=== PATIENT | female | born 2000 | race Caucasian/White ===

== ENCOUNTER 2021-04-17 08:08 | Outpatient (REF) | payer OTHER, SELFPAY ==
--- NOTE | ~2021-04-17 | XR_ITS ---
EXAMINATION: XR CHEST 2 VIEWS CLINICAL INFORMATION: Morbid obesity. COMPARISON: None. TECHNIQUE: Frontal and lateral views of the chest were obtained. FINDINGS: The heart, great vessels, pulmonary vasculature and mediastinum are normal. The lungs show no focal infiltrate, effusion or pneumothorax. There is no acute osseous abnormality. XR/XR chest 2V IMPRESSION: No active cardiopulmonary disease.
--- NOTE | 2021-04-17 10:03 | ECG_ITS ---
Test Reason : MORBID OBESITY Blood Pressure : / mmHG Vent. Rate : 076 BPM Atrial Rate : 076 BPM P-R Int : 136 ms QRS Dur : 090 ms QT Int : 402 ms P-R-T Axes : 008 033 001 degrees QTc Int : 452 ms Normal sinus rhythm Normal ECG No previous ECGs available Referred By: Chantel Feldman Electronically Signed By:Michael Morris
[2021-04-17 10:34] LABS: MANUAL DIFF FLAG NO
[2021-04-17 10:40] LABS: Basophils Percent Auto 0.5 % (0-2); Eosinophils Absolute Auto 0.1 X10*3/uL (0.0-0.4); Eosinophils Percent Auto 0.8 % (0-4); Hematocrit 41.2 % (37-47); Hemoglobin 12.3 g/dl (12.0-16.0); Imm Gran Abs Auto 0.04 X10*3/uL (0.00-0.03); Imm Gran Pct Auto 0.5 % (0.0-0.4); Lymphocytes Absolute Auto 2.2 X10*3/uL (1.2-4.9); Mean Corpuscular HGB Conc 29.9 g/dl (31.0-35.0); Mean Corpuscular Volume 83.7 fL (80-98); Mean Platelet Volume 11.3 fL (9.4-12.3); Monocytes Absolute Auto 0.6 X10*3/uL (0.1-1.2); Neutrophils Percent Auto 63.2 % (45-73); Platelet Count 297 X10*3/uL (160-400); Red Blood Count 4.92 X10*6/uL (4.20-5.50); Red Cell Distribution Width 13.7 % (11.0-16.0); White Blood Count 7.9 X10*3/uL (4.8-10.8)
[2021-04-17 10:57] LABS: Estimated Average Glucose 105 mg/dL; Hemoglobin A1c % 5.3 %
[2021-04-17 11:13] LABS: Alanine Aminotransferase 21 U/L (0-31); Albumin Level 4.4 g/dL (3.5-5.0); Alkaline Phosphatase 118 U/L (39-117); Anion Gap 12 (12-20); Aspartate Amino Transferase 19 U/L (5-31); Bilirubin Total 0.3 mg/dL (0.0-1.0); Blood Urea Nitrogen 6 mg/dL (9-16); C Reactive Protein 3.03 mg/dL (< or = 0.50); Calcium 9.5 mg/dL (8.4-10.2); Carbon Dioxide 26 mmol/L (22-29); Chloride 106 mmol/L (96-108); Cholesterol 151 mg/dL; Estimated Glomerular Filt Rate > 60; Glucose Random 94 mg/dL (60-115); HDL Cholesterol 41 mg/dL; Iron 35 mcg/dL (30-160); LDL Cholesterol Calculated 79 mg/dl; Potassium 4.8 mmol/L (3.3-5.1); Sodium 139 mmol/L (135-145); Total Protein 7.9 g/dL (6.5-8.0); Triglycerides 155 mg/dL
[2021-04-17 11:32] LABS: Percent Iron Saturation 9 % (15-50); Total Iron Binding Capacity 374 mcg/dL (228-428); Unsaturated Iron Binding 339 ug/dL
[2021-04-17 11:33] LABS: Ferritin 16 ng/mL (10-122); TSH reflex Free T4 1.97 uIU/mL (0.32-4.0); Vitamin D 25-OH Total 9.5 ng/mL (>30)
[2021-04-17 11:48] LABS: Folate 11.3 ng/mL (> or = 4.0); Vitamin B12 383 pg/mL (200-900)
[2021-04-18 13:15] LABS: H Pylori Breath Test NOT DETECTED (NOT DETECTED)
[2021-04-19 01:41] LABS: Insulin Level Total 48.5 uIU/mL
[2021-04-20 13:36] LABS: Calcium (PTHI) 9.6 mg/dL (8.6-10.2); PTHI 84 pg/mL (14-64)
[2021-04-21 00:17] LABS: Zinc 86 mcg/dL (60-130)
[2021-04-21 20:32] LABS: Vitamin A 34 mcg/dL (38-98)
[2021-04-22 11:17] LABS: Vitamin B1 <6 nmol/L (8-30)
== END 2021-04-17 08:09 | disposition home or self-care (01) ==
LOC: HO.XRAY 08:08
PROVIDERS: Visit Provider Physician Assistant
DX: E66.01 Morbid (severe) obesity due to excess calories (principal)
CPT/HCPCS: 36415; 71046; 80053; 80061; 82306; 82607; 82728; 82746; 83013; 83036; 83525; 83540; 83970; 84425; 84443; 84590; 84630; 85025; 86140; 93005; 99202

== ENCOUNTER → 2021-05-08 09:04 | Outpatient (BNVA) | payer OTHER, SELFPAY | PROVIDERS: Visit Provider Dietitian, Registered | DX: E66.01 Morbid (severe) obesity due to excess calories (principal); Z68.42 Body mass index [BMI] 45.0-49.9, adult | CPT/HCPCS: 97802 ==

== ENCOUNTER 2021-05-15 09:07 | Outpatient (REF) | payer OTHER, SELFPAY ==
--- NOTE | ~2021-05-15 | FL_ITS ---
EXAMINATION: XR GI SERIES CLINICAL INFORMATION: Obesity COMPARISON: None TECHNIQUE: Upper GI was performed using thin and thick barium and effervescent granules. FINDINGS: Esophageal motility is normal. There is mild gastroesophageal reflux. No esophageal hernia is seen. The stomach and duodenum are normal-appearing. No focal fold thickening, ulcer, mass or stricture is seen. FLUOROSCOPY TIME: 0.9 minutes DOSE AREA PRODUCT: 11 rossi per centimeter squared. 18 saved fluoroscopic images. FL/FL upper GI series IMPRESSION: Mild gastroesophageal reflux otherwise unremarkable exam.
--- NOTE | ~2021-05-15 | US_ITS ---
EXAMINATION: US COMPLETE ABDOMEN WITH LIVER ELASTOGRAPHY CLINICAL INFORMATION: Obesity COMPARISON: None. TECHNIQUE: Real-time imaging of the abdominal viscera. Noninvasive ultrasound liver fibrosis assessment is performed using Kerwin ElastPQ point quantification shear wave elastography (pSWE) with a C5-2 MHz transducer. Multiple elastography samples are obtained. FINDINGS: PANCREAS: Not visualized due to overlying bowel gas. ABDOMINAL AORTA: The proximal, middle, and distal aortic segments are normal in caliber. INFERIOR VENA CAVA: Visualized portions are normal. LIVER: Liver echotexture is increased The liver demonstrates normal size and contour. No focal lesion or intrahepatic biliary duct dilatation. The right lobe measures 13 cm in length. The left lobe measures 8 cm in length. Portal flow is normal/hepatopedal Shear wave liver elastography median stiffness is 1.35 m/s (reference: normal median stiffness is 1.3 m/s or less). IQR/median stiffness to assess sampling precision is 0.17 (reference: good quality data set is IQR/median stiffness of 0.15 or less). GALLBLADDER: Normal. The gallbladder is physiologically distended without evidence of stones, sludge, polyps, wall thickening or pericholecystic fluid. COMMON BILE DUCT: Normal in caliber measuring 0.3 cm in diameter. RIGHT KIDNEY: Normal. No hydronephrosis. No renal calculi or focal parenchymal lesions. The kidney measures 10 cm in maximum dimension. LEFT KIDNEY: Normal. No hydronephrosis. No renal calculi or focal parenchymal lesions. The kidney measures 12 cm in maximum dimension. SPLEEN: Normal. The spleen measures 11 cm in maximum dimension. FREE FLUID: None. US/US abdomen comp w elastography IMPRESSION: 1. Impression: Echogenic liver probably representing fatty infiltration. Nonvisualization of the pancreas. 2. Liver elastography: Adequate liver sampling. Normal liver stiffness. REFERENCE: Society of Radiologists in Ultrasound Liver Stiffness Thresholds (2020): LIVER STIFFNESS THRESHOLDS: *Liver Stiffness equal or less than 1.3 m/s: High probability of being normal. *Liver Stiffness less than 1.7 m/s: In the absence of other known clinical signs, rules out compensated advanced chronic liver disease. *Liver Stiffness 1.7-2.1 m/s: Suggestive of compensated advanced chronic liver disease but need further test for confirmation. *Liver Stiffness over 2.1 m/s: Rules in compensated advanced chronic liver disease. *Liver Stiffness over 2.4 m/s: Suggestive of clinically significant portal hypertension. QUALITY OF DATA SET: *IQR/Median value equal or less than 0.15 implies a quality data set. *IQR/Median value over 0.15 implies a poor quality data set. SIGNIFICANT CHANGE FROM PRIOR EXAM: Significant change if liver stiffness measurement is 10% or greater from prior exam. OTHER CONSIDERATIONS: The stage of liver fibrosis may be overestimated in the setting of acute hepatitis, liver inflammation, elevated liver function tests, hepatic vascular congestion, obstructive cholestasis, non-fasting state, and infiltrative diseases such as amyloidosis and lymphoma. In some patients with NAFLD, the liver stiffness thresholds for compensated advanced chronic liver disease may be lower. In causes other than viral hepatitis and NAFLD, liver stiffness thresholds are not well established.
== END 2021-05-15 09:08 | disposition home or self-care (01) ==
LOC: HO.US 09:07
PROVIDERS: Visit Provider Physician Assistant
DX: Z01.818 Encounter for other preprocedural examination (principal); E66.01 Morbid (severe) obesity due to excess calories; K21.9 Gastro-esophageal reflux disease without esophagitis
CPT/HCPCS: 74240; 76705; 76981

== ENCOUNTER → 2021-05-30 08:07 | Outpatient (BNVA) | payer OTHER, SELFPAY | PROVIDERS: Visit Provider Dietitian, Registered | DX: E66.01 Morbid (severe) obesity due to excess calories (principal); Z68.42 Body mass index [BMI] 45.0-49.9, adult | CPT/HCPCS: 97803 ==

== ENCOUNTER → 2021-07-11 08:03 | Outpatient (BNVA) | payer OTHER, SELFPAY | PROVIDERS: Visit Provider Surgery ==

== ENCOUNTER 2023-05-08 09:42 | Outpatient (AMB) | payer OTHER, SELFPAY ==
--- NOTE | 2023-05-08 09:51 | MHC.OFFWIV ---
Intake Vital Signs 05/08/23 11:09 Height 5 ft Weight 117.707 kg BMI 50.7 BP 118/80 Blood Pressure Location Lt brachial Position Sitting Pulse 76 Pulse Source Pulse Oximeter Temp 97.2 F Temp Source Temporal Artery Scan Pulse Oximetry (%) 99 Oxygen Delivery Method Room Air Intake Visit Reasons: EP ?Yeast infection/Nausea/Hotflashes/Dizziness Intake Note: 9:50am-Pt triaged in the lobby, she developed hot flash and dizziness when she arrived at work about 9:20am today. Her boss advised her to leave and be evaluated. She drove to [place]. Skin is warm and dry, she denies blurred vision, weakness, chest pain. She is able to speak in complete sentences without dyspnea. O2 sat is 98%, pulse is 82. She is not currently nauseous but was earlier. Advised to wait for appt in the lobby (approx 2 hour wait) and to report any changes to the front office staff. She agrees with this plan. Yaron BROWN Patient Tobacco Use Status: Never used Tobacco HPI HPI Comments History of Present Illness Details 1141 23-year-old female history of URI, GERD hyperinsulinemia, adjustment disorder, morbid obesity presents to the clinic for evaluation of vaginal discharge the past few weeks, she states initially it looked like cottage cheese and now it is like yellow and green, she tells me she is unsure if she has any STDs at this time, currently sexually active. Does not think she is however. Patient also states she had an episode of dizziness this morning, worse with positional changes, now has resolved. She states she is feeling fine. She just wants evaluation for her vaginal discharge. She does report she had a miscarriage in January. She is trying to get in within [facility]BG[facility] however appointments are not in till a few weeks from now. Denies fevers, chills, headache, vision changes, dizziness at this time, chest pain, shortness of breath, nausea, vomiting, abdominal pain. Physical exam benign Will rule out STDs versus versus UTI versus cystitis. Dizziness likely BPPV, vertigo, unlikely stroke, posterior stroke, intracranial hemorrhage. NIH stroke scale is 0. No signs of acute abdomen. Unlikely ectopic or torsion Patient agrees to prophylactic treatment for gonorrhea, chlamydia and trichomonas. 500mg IM ceftriaxone has been given here and scripts for doxycycline 100 mg po BID X 7 days and metronidazole 500 mg po BID X 7 days have been given to the patient. Educated on safe sex practices, full pannel STD testing and speaking to? partners on possible STD. Educated patient on diagnosis and treatment plan, answered all question, patient verbalizes understanding. At this time patient will be discharged home, advised to return with new or worsening symptoms. Educated on worrisome signs and symptoms and when to return. At this time I feel comfortable discharge home. [facility] Medical History GERD (gastroesophageal reflux disease) Hyperinsulinemia Knee pain No known health problems Surgical History No history of previous surgery Family History Mother Non Hodgkin's lymphoma Father Arthritis Sister Celiac disease Sister No problems noted. Brother Alopecia Sister No problems noted. Social History Alcohol intake: current Alcohol intake frequency: holidays/special occasions only Patient Tobacco Use Status: Never used Tobacco Review of Systems Const Details: Constitutional : No Weight loss, No Fever, No Chills, No Fatigue, No Malaise ENT/Mouth : No sore throat, No Rhinorrhea Eyes: No Eye Pain, No Swelling, No Redness Cardiovascular : No Chest Pain, No SOB, No Dyspnea on Exertion, No Orthopnea, No Edema, No Palpitations Respiratory : No Cough, No Sputum, No Wheezing Gastrointestinal : No Nausea, No Vomiting, No Diarrhea, No Constipation, No abdominal Pain, No Hematochezia, No Melena Genitourinary : No Dysuria, No Urinary Frequency, No Hematuria, + vaginal dc Musculoskeletal : No joint pain, No Myalgias, No Joint Swelling Skin : No Skin Lesions, No rash Neuro : No Weakness, No Numbness, No Dizziness, No Headache Psych : No Anxiety/Panic, No Depression All other systems reviewed and are negative All systems reviewed & are unremarkable except as noted in HPI and below Physical Exam Vital Signs: Last Vital Signs Temp 97.2 F 05/08/23 11:09 Pulse 76 05/08/23 11:09 BP 118/80 05/08/23 11:09 Pulse Ox 99 05/08/23 11:09 Oxygen Delivery Method Room Air 05/08/23 11:09 BMI result Body Mass Index 50.7 vss Appearance: Alert.? Oriented X3.? No acute distress.? Head: Normocephalic, atraumatic, no step-offs or deformities Eyes: Pupils equal, round and reactive to light.? CVS: Normal heart rate and rhythm.? Pulses normal.? Respiratory: No respiratory distress.? Breath sounds normal.? Abdomen: Soft and nontender.? Skin: Skin warm and dry.? Normal skin color.? Normal skin turgor.? Extremities: No lower extremity edema.? No calf ttp. 5/5 strength to bilateral upper and lower extremities Back: No midline tenderness, no C-spine tenderness, full range of motion, no CVA tenderness bilaterally Neuro: Oriented X 3.? No motor deficit.? No sensory deficit. CN 2-12 intact Assessment & Plan Assessment & Plan (1) Vaginal discharge: Code(s): N89.8 - Other specified noninflammatory disorders of vagina Plan Take your medications as prescribed. If you were prescribed antibiotics today, it is important that you take your medication to their entirety, do not skip any doses, do not finish them early. Follow-up with your primary care provider this week. Return to the emergency department with new or worsening symptoms. Such as fevers, chills, chest pain, shortness of breath, nausea, vomiting, dizziness, headache, vision changes, lethargy In case of emergency call 911 You were treated here today with ceftriaxone, a medication that treats gonorrhea. I have sent to your pharmacy Metronidazole that covers trichomonas, and Doxycycline which covers for chlamydia. Please be reevaluated by a healthcare provider after completing your antibiotics. Do not stop them early, do not skip any doses. Until you are reevaluated by a health care provider please practice safe sex as disucussed. Please also have a conversation with your sexual partners.? I also advise you to obtain full panel STD testing to test for other STDs including HIV, Hepatitis B & C and syphilis with your PCP or a local clinic. Orders: Orders AMB Ceftriaxone Injection Today N89.8 - Other specified noninflammatory disorders of vagina Medications: New ceftriaxone 500 mg IM ONCE 1 ea 0RF N89.8 - Other specified noninflammatory disorders of vagina doxycycline hyclate 100 mg PO BID 7 days 14 caps 0RF metronidazole 500 mg PO BID 7 days 14 tabs 0RF fluconazole 150 mg PO Q3D 2 doses 2 tabs 0RF Coding Level of Care Code Est Pt Level 3 (47972) Diagnoses Vaginal discharge N89.8
[2023-05-08 11:09] VITALS: BP 118/80; PULSE 76; TEMP 36.2; O2SAT 99; BMI 50.7
[2023-05-08 16:33] LABS: CT PCR NOT DETECTED (Not Detect.); NG PCR NOT DETECTED (Not Detect.)
== END 2023-05-08 13:47 | disposition home or self-care (01) ==
PROVIDERS: PCP Pediatrics; Visit Provider Physician Assistant
DX: N89.8 Other specified noninflammatory disorders of vagina (principal); Z32.02 Encounter for pregnancy test, result negative
CPT/HCPCS: 81003; 81025; 96372; 99213; J0696

== ENCOUNTER 2024-07-31 05:34 | Emergency (ER) | payer OTHER, SELFPAY ==
[2024-07-31 05:36] VITALS: BP 124/74; PULSE 126; RESP 20; TEMP 38.2; O2SAT 96; BMI 49.2
[2024-07-31 05:58] LABS: IDNOW Serial# 6674DD1D; Strep A Nucleic Acid Negative (Negative)
[2024-07-31 06:25] LABS: Influenza A PCR NEGATIVE (Negative); Influenza B PCR NEGATIVE (Negative); Resp Syncy Virus RNA Qual PCR NEGATIVE (Negative); SARS COV2 PCR INHOUSE NEGATIVE (Negative)
[2024-07-31 06:30] VITALS: BP 122/69; PULSE 114; RESP 18; TEMP 38; O2SAT 98
--- NOTE | 2024-07-31 06:35 | PC.NURSE ---
pt states trying to take liquid medication at home but has spit it up because it it hard to swallow. febrile in ED 100.4
[2024-07-31] MEDS: Acetaminophen Oral Liquid 650 MG/20.3 ML SOLUTION PO (06:40)
--- NOTE | 2024-07-31 07:21 | ED.FEVER ---
HPI - Fever General Chief Complaint: Fever Stated Complaint: Fever, Soar Throat Time Seen by Provider: 07/31/24 06:44 Source: patient Mode of arrival: ambulatory Limitations: no limitations History of Present Illness ED Provider: FREDDIE Anton HPI Narrative: 24-year-old female history of genital herpes, obesity, adjustment disorder, hyperinsulinemia, GERD presents with severe sore throat ongoing for the past 3 days, she reports since night she has had a fever of 102 and severe sore throat. She reports her soak her throat is causing difficulty with swallowing solids and liquids. This is the worse pain she has ever had in her throat. She reports changes in voice. She has not been eating or drinking much due to lack of appetite and pain in her throat. She denies sick contacts. She denies nausea, vomiting, diarrhea, abdominal pain, headache, vision changes, dizziness, cough, chest pain, shortness of breath. No hx of mono. No recent dental work Related Data Previous Rx's ?Medication ?Instructions ?Recorded doxycycline hyclate 100 mg capsule 100 mg PO BID 7 days #14 caps 05/08/23 fluconazole 150 mg tablet 150 mg PO Q3D 2 doses #2 tabs 05/08/23 metronidazole 500 mg tablet 500 mg PO BID 7 days #14 tabs 05/08/23 Magic Mouthwash 5 ml PO TID #240 mL 07/31/24 Diphen/Lido/Antacid 1:1:1 240 mL suspension prednisone 20 mg tablet 40 mg (2 x 20 mg) PO DAILY 5 days 07/31/24 #10 tabs Allergies Allergy/AdvReac Type Severity Reaction Status Date / Time No Known Allergies Allergy Verified 07/31/24 05:38 Review of Systems Review of Systems: Yes all other systems are reviewed and are negative PMFSH Past Medical History Attestation statement: The following information was validated with the patient. Source: old records reviewed and nursing notes reviewed Medical History Knee pain GERD (gastroesophageal reflux disease) Hyperinsulinemia No known health problems Surgical History No history of previous surgery Family History Family History Mother Non Hodgkin's lymphoma Father Arthritis Sister Celiac disease Sister No problems noted. Brother Alopecia Sister No problems noted. Social History Social History Alcohol intake: current Alcohol intake frequency: holidays/special occasions only Patient Tobacco Use Status: Never used Tobacco Smoked in Last 30 Days: No Use of substances other than those prescribed or required for medical reasons: Yes Substance Use Type: Marijuana Advance Directives: No Advance Directives Information Provided: Yes Do you have a plan to hurt others: No Plan Physical Exam Vital Signs: Vital Signs: Last Vital Signs Temp 99.3 F 07/31/24 08:12 Pulse 104 H 07/31/24 08:12 Resp 18 07/31/24 08:12 BP 126/69 07/31/24 08:12 Pulse Ox 97 07/31/24 08:12 O2 Del Method Room Air 07/31/24 08:12 BMI result Body Mass Index 49.2 Patient is tachycardic and febrile likely secondary to viral illness. Appearance: Alert.? Oriented X3.? No acute distress.? Head: Normocephalic, atraumatic, no step-offs or deformities Eyes: Pupils equal, round and reactive to light.? ENT: Pharynx with bilateral tonsillar hypertrophy, erythema. No tonsillar exudates. Uvula is midline. Normal hard and soft palate. Patient does have a muffled voice. Neck: Normal inspection.? Neck supple.? CVS: Normal heart rate and rhythm.? Pulses normal.? Respiratory: No respiratory distress.? Breath sounds normal.? Abdomen: Soft and nontender.? Skin: Skin warm and dry.? Normal skin color.? Normal skin turgor.? Extremities: No lower extremity edema.? No calf ttp. 5/5 strength to bilateral upper and lower extremities Neuro: Oriented X 3.? No motor deficit.? No sensory deficit. CN 2-12 intact Course Reevaluation(s) Reevaluation #1: Patient with leukocytosis 19.7, no left shift. This is likely secondary to viral illness/mononucleosis which is the most likely diagnosis at this time. Chemistry with no acute findings needing intervention CRP markedly elevated 18.57 likely secondary to acute illness/mono. Patient negative for flu, COVID, RSV. Positive for mononucleosis as expected. Patient doing much better after oral Decadron and Tylenol. Tolerating p.o. fluids and solids. Patient to be discharged with prednisone, magic mouthwash. I did tell her there is a low threshold for her on when to return if she experiences difficulty swallowing, worsening sore throat, changes in voice trouble controlling secretions she should return immediately. She verbalizes understanding of this and feels comfortable going home. No indication for admission at this time. No signs of threat to airway. Patient doing much better. Educated patient on diagnosis and treatment plan, answered all question, patient verbalizes understanding. At this time patient will be discharged home, advised to return with new or worsening symptoms. Educated on worrisome signs and symptoms and when to return. At this time I feel comfortable discharge home. Time: 08:39 Medications Administered Discontinued Medications Generic Name Dose Route Start Last Admin Trade Name Reynaldo PRN Reason Stop Dose Admin Acetaminophen 650 mg 07/31/24 06:37 07/31/24 06:40 Acetaminophen Oral Liquid 650 Mg/20.3 Ml Solution PO 07/31/24 06:38 650 mg ONCE ONE Administration Dexamethasone Sodium Phosphate 10 mg 07/31/24 07:21 07/31/24 08:10 Dexamethasone Sod Phosphate 10 Mg/Ml Vial IVPUSH 07/31/24 07:22 10 mg ONCE ONE Administration Medical Decision Making Medical Decision Making [facility] Narrative: 24-year-old female presents with sore throat, fatigue, malaise, myalgias and fever ongoing for the past few days. Physical exam significant for Pharynx with bilateral tonsillar hypertrophy, erythema. No tonsillar exudates. Uvula is midline. Normal hard and soft palate. Patient does have a muffled voice. History and physical exam concerning for strep pharyngitis versus mononucleosis. Unlikely peritonsillar abscess, retropharyngeal abscess, epiglottitis, Yakov's Plan- labs, viral testing Differential Diagnosis Differential Diagnoses: The differential diagnosis associated with the presentation includes (History and physical exam concerning for strep pharyngitis versus mononucleosis. Unlikely peritonsillar abscess, retropharyngeal abscess, epiglottitis, Yakov's) Admission/Observation Consideration of admission/observation: Escalation of care including admission/observation considered Lab Data [facility] Lab Attestation statement: I reviewed the patient's lab results. 07/31/24 07:53 07/31/24 07:53 Labs: Lab Results 07/31/24 07/31/24 07/31/24 Range/Units 05:43 07:06 07:53 WBC 19.7 H (4.8-10.8) X10*3/uL RBC 4.40 (4.20-5.50) X10*6/uL Hgb 10.9 L (12.0-16.0) g/dl Hct 35.4 L (37.0-47.0) % MCV 80.5 (80.0-98.0) fL MCH 24.8 L (27.0-33.0) pg MCHC 30.8 L (31.0-35.0) g/dl RDW 15.7 (11.0-16.0) % Plt Count 227 (160-400) X10*3/uL MPV 10.9 (9.4-12.3) fL Sodium 137 (135-145) mmol/L Potassium 3.4 (3.3-5.1) mmol/L Chloride 107 (96-108) mmol/L Carbon Dioxide 22 (22-29) mmol/L Anion Gap 11 L (12-20) BUN 4 L (9-16) mg/dL Creatinine 0.73 (0.5-1.4) mg/dL Estim Creat Clear Calc 136.9 Estimated GFR > 60 Random Glucose 120 H (60-115) mg/dL Calcium 9.2 (8.4-10.2) mg/dL Total Bilirubin 1.2 H (0.0-1.0) mg/dL AST 16 (5-31) U/L ALT 11 (0-31) U/L Alkaline Phosphatase 94 (39-117) U/L C-Reactive Protein 18.57 H (< or = 0.50) mg/dL Total Protein 7.7 (6.5-8.0) g/dL Albumin 4.1 (3.5-5.0) g/dL Monoscreen Positive A (Negative) Influenza Type A (PCR) NEGATIVE (Negative) Influenza Type B (PCR) NEGATIVE (Negative) RSV RNA Qual (PCR) NEGATIVE (Negative) SARS-CoV-2 RNA (RT-PCR) NEGATIVE (Negative) S. pyogenes GrpA SHAD Negative (Negative) External Record Review External record reviewed: Inpatient record, Office record, Outpatient record, Prior outpatient labs, Prior outpatient radiology, Primary care record and Outside ED record Prescription Management I considered prescription management with: Other (Steroids) Chronic Conditions Patient?s care impacted by: Other (GERD, obesity, adjustment disorder, genital herpes) Discharge Plan Discharge Clinical Impression: Mononucleosis, Pharyngitis Patient Disposition: Home, Self-Care Instructions: Mononucleosis (ED), Pharyngitis (ED) Additional Instructions: Take your medications as prescribed. If you were prescribed antibiotics today, it is important that you take your medication to their entirety, do not skip any doses, do not finish them early. Follow-up with your primary care provider this week. Return to the emergency department with new or worsening symptoms. Such as fevers, chills, chest pain, shortness of breath, nausea, vomiting, dizziness, headache, vision changes, lethargy In case of emergency call 911 Please keep hydrated. Return with any new or worsening symptoms such as changes in voice worsening pain in your throat, inability to swallow liquids or solids. Prescriptions: New prednisone 20 mg tablet 40 mg PO DAILY 5 Days Qty: 10 0RF Magic Mouthwash Diphen/Lido/Antacid 1:1:1 240 mL suspension 5 ml PO TID Qty: 240 0RF Rx Instructions: Lidocaine Viscous 2 % 80mL; diphenhydramine 12.5 mg/5 mL 80mL; aluminum-mag hydrox-simeth [id number] 80mL Swish and spit, do not swallow No Action doxycycline hyclate 100 mg capsule 100 mg PO BID 7 Days Qty: 14 0RF metronidazole 500 mg tablet 500 mg PO BID 7 Days Qty: 14 0RF fluconazole 150 mg tablet 150 mg PO Q3D 0 Days Qty: 2 0RF Referrals: Nava Wong [Primary Care Provider] - 2 days Stand Alone Forms: Work/School Release Print Language: Albanian
[2024-07-31 08:01] LABS: Basophils Absolute Auto 0.1 X10*3/uL (0.0-0.2); Basophils Percent Auto 0.3 % (0-2); Hematocrit 35.4 % (37.0-47.0); Hemoglobin 10.9 g/dl (12.0-16.0); Imm Gran Abs Auto 0.18 X10*3/uL (0.00-0.03); Imm Gran Pct Auto 0.9 % (0.0-0.4); Lymphocytes Absolute Auto 1.7 X10*3/uL (1.2-4.9); Lymphocytes Percent Auto 8.4 % (20-40); MANUAL DIFF FLAG SCAN; Mean Corpuscular HGB Conc 30.8 g/dl (31.0-35.0); Mean Corpuscular Hemoglobin 24.8 pg (27.0-33.0); Mean Corpuscular Volume 80.5 fL (80.0-98.0); Mean Platelet Volume 10.9 fL (9.4-12.3); Monocytes Absolute Auto 1.8 X10*3/uL (0.1-1.2); Monocytes Percent Auto 9.2 % (2-11); Neutrophils Percent Auto 81.2 % (45-73); Platelet Count 227 X10*3/uL (160-400); Red Cell Distribution Width 15.7 % (11.0-16.0); SCAN SMEAR FLAG 1; White Blood Count 19.7 X10*3/uL (4.8-10.8)
[2024-07-31 08:07] LABS: Monotest Positive (Negative)
[2024-07-31] MEDS: dexAMETHasone sod phosphate 10 MG/ML VIAL IVPUSH (08:10)
[2024-07-31 08:12] VITALS: BP 126/69; PULSE 104; RESP 18; TEMP 37.4; O2SAT 97
--- NOTE | 2024-07-31 08:15 | PC.NURSE ---
pt is alert and oriented, skin appropriate for ethnicity, respirations even and unlabored, pt reports not feeling well since , sore throat and fevers-throat is extremely swollen and red
[2024-07-31 08:18] LABS: Alanine Aminotransferase 11 U/L (0-31); Albumin Level 4.1 g/dL (3.5-5.0); Alkaline Phosphatase 94 U/L (39-117); Anion Gap 11 (12-20); Aspartate Amino Transferase 16 U/L (5-31); Bilirubin Total 1.2 mg/dL (0.0-1.0); Blood Urea Nitrogen 4 mg/dL (9-16); C Reactive Protein 18.57 mg/dL (< or = 0.50); Calcium 9.2 mg/dL (8.4-10.2); Carbon Dioxide 22 mmol/L (22-29); Chloride 107 mmol/L (96-108); Creatinine Clr Calc Pharmacy 136.9; Estimated Glomerular Filt Rate > 60; Glucose Random 120 mg/dL (60-115); Potassium 3.4 mmol/L (3.3-5.1); Sodium 137 mmol/L (135-145); Total Protein 7.7 g/dL (6.5-8.0)
[2024-07-31 08:39] LABS: SLIDE REVIEW VERIFIED
[2024-07-31 08:42] LABS: Erythrocyte Sedimentation Rate 38 MM/HR (0-20)
[2024-07-31 09:09] VITALS: BP 126/69; PULSE 104; RESP 18; TEMP 37.4; O2SAT 97
--- OUTSIDE RECORDS SUMMARY | 2024-08-06 12:16 | XMS_ITS | Continuity of Care Document ---
Author Organization [facility] Address [address] [place] [address]- Care Team Providers Care Veneer Stock Layer Name Role Phone Courtney COREAS, Joe Primary Care Physician Encounter [facility] Date(s): 01/30/23 - 01/30/[address] [address]- Encounter Diagnosis Vagina bleeding(Final) - 01/30/23 Discharge Disposition: A-D/C Home Attending Physician: Douglas Gutierrez MD Admitting Physician: Matt COREAS, Douglas Perkins Referring Physician: Not on Staff, Referring MD Allergies, Adverse Reactions, Alerts No Known Allergies Medications No Known Medications Problem List Condition Confirmation Course Effective Dates Status Health St atus Informant Severe obesity Confirmed Active Vital Signs Most recent to oldest [Reference Range]: 1 2 3 Height 153 cm (01/30/23 5:40 PM) 153 cm (01/30/23 5:38 PM) 153 cm (01/30/23 4:44 PM) Weight 116 kg (01/30/23 5:40 PM) 116 kg (01/30/23 5:38 PM) 116 kg (01/30/23 4:44 PM) Oxygen Saturation [94-100 %] 100 % (01/30/23 5:38 PM) Pulse Rate [55-90 bpm] 81 bpm (01/30/23 5:38 PM) Body Mass Index [18.5-24.99 kg/m2] 49.55 kg/m2 *>HHI* (01/30/23 5:40 PM) 49.55 kg/m2 *>HHI* (01/30/23 5:38 PM) Blood Pressure [90-138/55-84 mm Hg] 106/72mm Hg (01/30/23 5:38 PM) Respiratory Rate [16-30 br/min] 20 br/min (01/30/23 5:38 PM) Temperature [96.8-100.4 DegF] 98.0 DegF (01/30/23 5:40 PM) Mode of Delivery (Oxygen) Room air (01/30/23 5:38 PM) Blood pressure sites Arm, left (01/30/23 5:38 PM) Temperature Route Oral (01/30/23 5:40 PM) Dry Weight 116 kg (01/30/23 5:40 PM) 116 kg (01/30/23 5:38 PM) 116 kg (01/30/23 4:44 PM) Dry Weight Obtained Via Standing scale (01/30/23 4:44 PM) Social History Social History Type Response Smoking Status Never (less than 100 in lifetime) entered on: 05/17/20 Sex Note * Matt COREAS, Douglas Perkins: PERFORM Event Display: Patient Education Leaflets Authored Date: [id number] Completed Spontaneous Miscarriage ?? [id number] Completed Spontaneous Miscarriage Today's exams show that you have had a miscarriage. This is the unplanned end of a hqdxgi15 weeks. When a miscarriage happens, you???re likely to have a wide range of feelings. Completed miscarriage means that the embryo or fetus, placenta, and other tissues are passed out ofthe uterus with bleeding. It???s important to know that you did not cause this to happen. Miscarriage is very common. About 1or 2 out of every [address] Miscarriage usually takes place in the first 10 weeks after conception. It may happen before you know you are . It may happen for many reasons. Often the cause is not known. Miscarriage is not your fault. It didn???t happen because you did something wrong. Sex or exercise does not cause a miscarriage. These activities are safe unless your healthcare provider tells you tostop. Even a minor fall won???t cause a miscarriage. It appears that your miscarriage is complete. This means that all tissue from the should have passed out of your uterus. If some of the tissue??is still in your uterus, you will have more cramping and bleeding.??The bleeding can be light spotting or like a period. It's usually not heavy. You may also pass some tissue. After you have recovered, you should be able to get again. Before trying, talk with your healthcare provider. Home care After you go home: ??? You may not feel well for a few days. Your body is going through changes. You will have mood swings. ??? You may have some cramping and bleeding, but it shouldn???t be severe. ??? When you are ready, you can start to go back to your normal routine. Until the bleeding stops fully, to prevent infection: ??? Don???t have sex until your healthcare provider says it???s OK. ??? Don???t use tampons. Use pads instead. ??? Don???t use douche. Having a miscarriage is stressful and upsetting. It's natural to feel sadness or grief. Partners grieve, too. It may help to talk about your feelings with family, friends, a counselor, or advisory internship. ?? Follow-up care See your healthcare provider in 1 to 2 weeks for a checkup. If you had an ultrasound, a radiologistwill look at it. You will be told of any results that may affect your care. If you have cramping and bleeding for more than a few days, call your healthcare provider. You willneed another exam. Your provider might need to take out the tissue with surgery. This is to preventinfection in your uterus. Or you may be given medicine to take at home. This will help the rest of the tissue come out of your body. ?? Call 911 Call 911 if you have any of these: ??? Severe pain and very heavy bleeding ??? Severe lightheadedness, passing out, or fainting ??? Fast heart rate ??? Trouble breathing ??? Confusion ??? Trouble waking up ?? When to get medical care Call your healthcare provider right away??if you have any of these: ??? Heavy bleeding that soaks 1pad an hour over 3 hours ??? Bleeding that doesn???t stop after 10 days ??? Fluid from your vagina that smells bad ??? Fever of 100.4??F (38??C) or higher ??? Pain in your lower belly (abdomen) that gets worse ??? Weakness or dizziness ?? Last Reviewed Date: 2021 ?? [id number] [employer]. All rights reserved. This information is not intended as a substitute for professional medical care. Always follow your healthcare professional's instructions. ?? Patient Care team information Care Team Personnel Name: Joe Valdez MD Position: Reference Physician Member Role: PCP Address: Address: [address] [place] [address]- Name: Douglas Gutierrez MD Position: [facility] Resident Member Role: Admitting Physician Address: Address: [address] [place] [address]- Name: Alicja Bee Position: [facility] ED OA Member Role: Patient Care Provider Name: Swati Wharton RN Position: [facility] ED RN W/OE and Tasks Member Role: Patient Care Provider Care Team Related Persons Name: ISABEL OAKLEY Name: DANA ALBRIGHT Address: [address] [address]
--- OUTSIDE RECORDS SUMMARY | 2024-08-06 12:16 | XMS_ITS | Continuity of Care Document ---
Author Organization [facility] Address [address] [place] [address]- Care Team Providers Care Top Closer Name Role Phone Keara [place] NP Primary Care Physician ( [phone] Encounter [facility] Date(s): 08/11/20 - 09/10/20 [facility] [address] [place] [address] Attending Physician: Sara Bello Admitting Physician: Sara Bello Referring Physician: Admtr, Maurice8 Allergies, Adverse Reactions, Alerts Substance Reaction Severity Status NKA Active Medications Topamax 50 mg oral tablet 1 tablet = 50 mg, By Mouth, Daily at bedtime, # 30 tablet, 4 Refills, Maintenance, 08/08/20 8:43:00EST, [facility]/pharmacy #[id number], Partial fill upon patient request Start Date: 08/08/20 Stop Date: 01/05/21 Status: Ordered Social History Social History Type Response Smoking Status Never (less than 100 in lifetime) entered on: 05/17/20 Sex
--- OUTSIDE RECORDS SUMMARY | 2024-08-06 12:16 | XMS_ITS | Continuity of Care Document ---
Author Organization [facility] Address [address] [facility], [address]r d Floor, [address] [place] [address]- Care Team Providers Care Outbound Supervisor Name Role Phone Jam SUE, Keara Quinonez Primary Care Physician [place] [facility] [place] 09/[place]20 - 10/03/20 [facility] [address] [facility], 3rd Floor, [address] [place] [address] Attending Physician: Lisa Asher MD Referring Physician: Keara [place] NP Allergies, Adverse Reactions, Alerts Substance Reaction Severity Status NKA Active Medications Topamax 50 mg oral tablet 1 tablet = 50 mg, By Mouth, Daily at bedtime, # 30 tablet, 4 Refills, Maintenance, 08/08/20 8:43:00EST, [facility]/pharmacy #[id number], Partial fill upon patient request Start Date: 08/08/20 Stop Date: 01/05/21 Status: Ordered Social History Social History Type Response Smoking Status Never (less than 100 in lifetime) entered on: 05/17/20 Sex
--- OUTSIDE RECORDS SUMMARY | 2024-08-06 12:16 | XMS_ITS | Continuity of Care Document ---
Author Organization [facility] Address [address] [facility], [address] Floor, [address] [place] [address]- Care Team Providers Care Nozzle Cement Sprayer Helper Name Role Phone Keara [place] NP Primary Care Physician Encounter [facility] Date(s): 09/26/20 - 10/26/20 [facility] [address] [facility], 3rd Floor, [address] [place] [id number] Attending Physician: Sara Bello Admitting Physician: Sara Bello Referring Physician: Admtr, Ar8 Allergies, Adverse Reactions, Alerts Substance Reaction Severity Status NKA Active Medications Topamax 50 mg oral tablet 1 tablet = 50 mg, By Mouth, Daily at bedtime, # 30 tablet, 4 Refills, Maintenance, 08/08/20 8:43:00EST, [facility]/pharmacy #[id number], Partial fill upon patient request Start Date: 08/08/20 Stop Date: 01/05/21 Status: Ordered Social History Social History Type Response Smoking Status Never (less than 100 in lifetime) entered on: 05/17/20 Sex
--- OUTSIDE RECORDS SUMMARY | 2024-08-06 12:16 | XMS_ITS | Continuity of Care Document ---
Author Organization [facility] Address [address] [place] [address]- Care Team Providers Care Medical Transcriptionist Name Role Phone Keara [place] NP Primary Care Physician Encounter [facility] Date(s): 05/08/20 - 06/07/20 [facility] [address] [address]- [facility] Allergies, Adverse Reactions, Alerts Substance Reaction Severity Status NKA Active Social History Social History Type Response Smoking Status Never (less than 100 in lifetime) entered on: 05/17/20 Sex
--- OUTSIDE RECORDS SUMMARY | 2024-08-06 12:16 | XMS_ITS | Continuity of Care Document ---
Author Organization [facility] Address [address] [facility], 3r d Floor, [address] [place] [address]- Care Team Providers Care Senior Climate Advisor Name Role Phone Jam SUE, Keara Quinonez Primary Care Physician ( [phone] [place] [facility]): [place] 06/23/20 [facility] [address] [facility], 3rd Floor, [address] [place] [address]- [facility] Attending Physician: Not on Staff, Attending MD Referring Physician: Keara [place] NP Allergies, Adverse Reactions, Alerts Substance Reaction Severity Status NKA Active Medications magnesium oxide 400 mg oral tablet 1 tablet = 400 mg, By Mouth, Daily, for 30 days, # 30 tablet, 6 Refills, Acute 01/12/21 15:50:00 EDT, 06/16/20 15:50:00 EDT, Tablet, [facility]/pharmacy #[id number] Start Date: 06/16/20 Stop Date: 01/12/21 Status: Ordered Vital Signs Most recent to oldest [Reference Range]: 1 Oxygen Saturation [94-100 %] 99 % (06/16/20 3:14 PM) Pulse Rate [55-90 bpm] 78 bpm (06/16/20 3:14 PM) Blood Pressure [90-138/55-84 mm Hg] 129/ 78mm Hg (06/16/20 3:14 PM) Temperature [96.8-100.4 DegF] 96.8 DegF (06/16/20 3:14 PM) Blood pressure sites Arm, right (06/16/20 3:14 PM) Temperature Route Temporal (06/16/20 3:14 PM) Social History Social History Type Response Smoking Status Never (less than 100 in lifetime) entered on: 05/17/20 Sex
--- OUTSIDE RECORDS SUMMARY | 2024-08-06 12:16 | XMS_ITS | Continuity of Care Document ---
Author Organization [facility] Address [address] [place] [address]- Care Team Providers Care Commercial Carpet Installer Name Role Phone Keara [place] NP Primary Care Physician ( [phone] Encounter [facility] Date(s): 06/19/20 - 07/19/20 [facility] Care [place] [address] [place] [address]- [facility] Allergies, Adverse Reactions, Alerts Substance Reaction Severity Status NKA Active Medications magnesium oxide 400 mg oral tablet 1 tablet = 400 mg, By Mouth, Daily, for 30 days, # 30 tablet, 6 Refills, Acute 01/12/21 15:50:00 EDT, 06/16/20 15:50:00 EDT, Tablet, [id number] Start Date: 06/16/20 Stop Date: 01/12/21 Status: Ordered Social History Social History Type Response Smoking Status Never (less than 100 in lifetime) entered on: 05/17/20 Sex
--- OUTSIDE RECORDS SUMMARY | 2024-08-06 12:16 | XMS_ITS | Continuity of Care Document ---
Author Organization [facility] Address [address] [place] [address]- Care Team Providers Care Precinct Captain Name Role Phone Keara [place] NP Primary Care Physician Encounter [facility] Date(s): 06/19/20 - 07/19/20 [facility] [place] [address] [place] [address]- [facility] Allergies, Adverse Reactions, Alerts Substance Reaction Severity [...]
--- OUTSIDE RECORDS SUMMARY | 2024-08-06 12:16 | XMS_ITS | Continuity of Care Document ---
Author Organization [facility] Address [address] [place] [address]- Care Team Providers Care Induction Heating Equipment Setter Name Role Phone Courtney COREAS, Joe Primary Care Physician Encounter [facility] Date(s): 03/17/23 - 03/18/[address] [address]- Discharge Disposition: A-D/C Home Attending Physician: Darius COREAS, Yaneth Arreguin Admitting Physician: Yaneth Mccoy MD Referring Physician: Not on Staff, Referring MD Allergies, Adverse Reactions, Alerts No Known Allergies Medications Tylenol Tablet 650 mg, Tablet, By Mouth, Once, STAT, 03/17/23 21:42:00 EDT, Stop date 03/17/23 21:42:00 EDT Start Date: 03/17/23 Stop Date: 03/17/23 Status: Completed Problem List Condition Confirmation Course Effective Dates Status Health atus Informant Severe obesity Confirmed Active Results Orders for Microbiology Reports Name Date Group A Strep Screen and Culture 03/17/23 Microbiology Reports TEST:Group A Strep Screen and Culture STATUS:Unauthenticated BODY SITE: SOURCE:THROAT COLLECTED DATE/TIME:03/17/23 9:44 PM Group A Strep Screen and Culture SPECIMEN DESCRIPTION : THROAT SWAB SPECIAL REQUESTS : NONE DIRECT EXAM : RAPID GROUP A RESULT IS NEGATIVE, REFER TO CULTURE RESULT. REPORT STATUS : PRELIMINARY REPORT Radiology Reports * Exam Date Time Procedure Performing Provider Status 03/17/23 10:15 PM Chest 2 Views Frontal and Lat Brianne Santiago; Auth (Verified) Notes: (Chest 2 Views Frontal and Lat) Reason For Exam: Chest Pain;Other: RESULT: Chest 2 Views Frontal and Lat Chest 2 Views Frontal and Lat Hx of Present Illness: pt reports dizziness, chest pain, sob, N, abd pain , sore throat- onset thisam; Reason: Other:; Chest Pain; Clinical Question(s): Other: COMPARISON: None. FINDINGS: LINES AND TUBES: None. LUNGS AND PLEURA: Clear lungs. Normal pulmonary vascularity. No pleural effusion. No pneumothorax. HEART, MEDIASTINUM AND SMITHA: Heart is normal in size. Normal mediastinal and hilar contour. BONES AND SOFT TISSUES: No acute abnormality. IMPRESSION: No acute abnormality. WSN: [id number] Ordering Physician: Hubert Mo Dictated By: Nathan Morocho MD Dictated Date/Time: 03/17/23 10:16 p Reviewed By: Nathan Morocho MD Signed By: Nathan Morocho MD Signed Date/Time: 03/17/23 10:16 pm Transcribed By: KAREN Transcribed Date/Time: 03/17/23 10:16 pm Vital Signs Most recent to oldest [Reference Range]: 1 2 3 Height 153 cm (03/18/23 1:34 AM) 153 cm (03/17/23 9:44 PM) 153 cm (03/17/23 9:38 PM) Weight 117.4 kg (03/18/23 1:34 AM) 117.4 kg (03/17/23 9:44 PM) 117.4 kg (03/17/23 9:38 PM) Oxygen Saturation [94-100 %] 100 % (03/18/23 1:34 AM) 98 % (03/17/23 11:27 PM) 97 % (03/17/23 9:38 PM) Pulse Rate [55-90 bpm] 94 bpm *H* (03/18/23 1:34 AM) 86 bpm (03/17/23 11:27 PM) 116 bpm *H* (03/17/23 9:38 PM) Body Mass Index [18.5-24.99 kg/m2] 50.15 kg/m2 *>HHI* (03/18/23 1:34 AM) 50.15 kg/m2 *>HHI* (03/17/23 9:38 PM) Blood Pressure [90-138/55-84 mm Hg] 117/59mm Hg (03/18/23 1:34 AM) 117/67mm Hg (03/17/23 11:27 PM) 130/91mm Hg (03/17/23 9:38 PM) Respiratory Rate [16-30 br/min] 20 br/min (03/18/23 1:34 AM) 20 br/min (03/17/23 11:27 PM) 18 br/min (03/17/23 10:47 PM) Temperature [96.8-100.4 DegF] 98.3 DegF (03/18/23 1:34 AM) 98.2 DegF (03/17/23 11:27 PM) 101.9 DegF *H* (03/17/23 9:38 PM) Mode of Delivery (Oxygen) Room air (03/18/23 1:34 AM) Room air (03/17/23 11:27 PM) Blood pressure sites Arm, left (03/18/23 1:34 AM) Arm, left (03/17/23 11:27 PM) Arm, left (03/17/23 9:38 PM) Temperature Route Oral (03/18/23 1:34 AM) Oral (03/17/23 11:27 PM) Temporal (03/17/23 9:38 PM) Dry Weight 117.4 kg (03/18/23 1:34 AM) 117.4 kg (03/17/23 9:44 PM) 117.4 kg (03/17/23 9:38 PM) Dry Weight Obtained Via Standing scale (03/17/23 9:38 PM) Social History Social History Type Response Smoking Status Never (less than 100 in lifetime) entered on: 05/17/20 Sex Patient Care team information Care Team Personnel Name: Courtney COREAS, Joe Position: Reference Physician Member Role: PCP Address: Address: [address] [facility] [place] [address]- Name: Clarence Rosario RN Position: [facility] ED RN W/OE and Tasks Member Role: Patient Care Provider Name: Juan Luis Voss DO Position: [facility] ED Medicine MD Member Role: ED Attending Physician Address: Address[facility] [address] [facility] [place] [address]- Name: Stella Murdock Position: [facility] ED TA [facility] Member Role: Patient Care Provider Care Team Related Persons Name: ISABEL OAKLEY Name: DANA ALBRIGHT Address: home [address] [place] [address]
--- OUTSIDE RECORDS SUMMARY | 2024-08-06 12:16 | XMS_ITS | Continuity of Care Document ---
Author Organization [facility] Address [address] [place] [address]- Care Team Providers Care Director Of Rotc Name Role Phone Keara [place] NP Primary Care Physician Encounter [facility] Date(s): 05/17/20 - 06/16/20 [facility] [address] [address]- [facility] Attending Physician: Sara Bello Admitting Physician: AdmSara hopper Referring Physician: Admtr, Ar8 Allergies, Adverse Reactions, Alerts Substance Reaction Severity Status NKA Active Medications magnesium oxide 400 mg oral tablet 1 tablet = 400 mg, By Mouth, Daily, for 30 days, # 30 tablet, 6 Refills, Acute 01/12/21 15:50:00 EDT, 06/16/20 15:50:00 EDT, Tablet, [facility]/pharmacy #[id number] Start Date: 06/16/20 Stop Date: 01/12/21 Status: Ordered Social History Social History Type Response Smoking Status Never (less than 100 in lifetime) entered on: 05/17/20 Sex
== END 2024-07-31 09:10 | disposition home or self-care (01) ==
PROVIDERS: Physician Assistant; Emergency Provider Emergency Medicine; PCP Pediatrics
DX: B27.90 Infectious mononucleosis, unspecified without complication (principal); J02.9 Acute pharyngitis, unspecified; Z03.818 Encounter for observation for suspected exposure to other biological agents ruled out; R50.9 Fever, unspecified; R00.0 Tachycardia, unspecified
CPT/HCPCS: 0241U; 36415; 80053; 85025; 85652; 86140; 86308; 87651; 96374; 99284; J1100

== ENCOUNTER 2024-12-23 11:13 | Outpatient (AMB) | payer OTHER, SELFPAY ==
[2024-12-23 11:18] VITALS: BP 130/70; PULSE 104; TEMP 36.7; O2SAT 98; BMI 49.2
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
--- OUTSIDE RECORDS SUMMARY | 2024-12-23 13:35 | XMS_ITS | Encounter Summary ---
Author Organization [facility] Address [address] [place] [address] Care Team Providers Care Sheet Metal Assembler And Riveter Name Role Phone Paige Delgado DO Primary Care Provider [phone] Encounter Details Date Type Department Care Team ([facility] Contact Info) Description 12/07/2024 Telephone Internal Medicine - [facility] [address] [place], [place] [phone] Paige Delgado DO [address] [place] [address] Social History Tobacco Use Types Packs/Day Years Used Date Smoking Tobacco: Never Smokeless Tobacco: Never Alcohol Use Standard Drinks/Week Comments Yes 0 (1 standard drink = 0.6 oz pur e alcohol) Comments Unknown Sex and Gender Information Value Date Recorded Sex Assigned at Not on file Legal Sex Female 11:07 AM EST Gender Identity Not on file Sexual Orientation Not on file documented as of this encounter Plan of Treatment Upcoming Encounters Date Type Department Care Team ([facility] Contact Info) Description 01/04/2025 12:00 PM EDT Office [facility] [address] [facility] [place] [phone] Carlos Patino PA [address] [facility] [place] [address] documented as of this encounter Visit Diagnoses Not on filedocumented in this encounter Care Teams Sheet Metal Assembler And Riveter Relationship Specialty Start Date End Date Paige DelgadoDO [address] [facility] [place] [address] PCP - General Internal Medicine 12/07/24 documented as of this encounter
--- OUTSIDE RECORDS SUMMARY | 2024-12-23 13:35 | XMS_ITS | Clinical Summary ---
Author Organization [address] Address [address] [place] [phone] Phone Care Team Providers Care Head Banquet Waitress Name Role Phone DannyPaige Primary Care Provider [phone] Allergies No known active allergies Medications ibuprofen (ADVIL,MOTRIN) 600 mg tablet Take 1 tablet (600 mg total) by mouth every 6 (six) hours if needed for mild pain. for up to 30 days. Active triamcinolone (KENALOG) 0.025 % cream Apply topically 2 (two) times a day if needed for irritation. Active lidocaine (LMX) 4 % cream Apply 0.5 g topically 4 (four) times a day if needed for mild pain. for up to 10 days Active norethindrone (HOMAR,RAFI,H EATHER,MICRONOR ) 0.35 mg tablet Take 1 tablet (0.35 mg total) by mouth 1 (one) time each day. for 360 days Active etonogestreL-et hinyl estradioL (NUVARING) 0.12-0.015 mg/24 hr vaginal ring Insert 1 each into the vagina every 28 (twenty-eight) days. Insert vaginally and leave in place for 3 consecutive weeks, then remove for 1 week. Active ondansetron (ZOFRAN) 4 mg tablet Take 1 tablet (4 mg total) by mouth every 8 (eight) hours if needed for nausea or vomiting. for up to 7 days Active metFORMIN XR (GLUCOPHAGE-XR) 500 mg 24 hr tabletIndicatio ns:PCOS (polycystic ovarian syndrome) Take 1 tablet (500 mg total) by mouth 2 (two) times a day. Do not crush, chew, or split. 60 tablet 2 Active Active Problems Problem Noted Date Diagnosed Date Chlamydia infection 06/15/2024 Encounters Date Type Department Care Team Description 12/07/2024 Telephone Internal Medicine - [facility] [address] [place] [phone] Paige Delgado, from Last 3 Months Medical History Medical History Date Comments Depression DX:Depression Irregular menstruation DX:Irregu lar menstruation Morbid obesity (CMS/HCC V24, CMS/HCC V28) DX:Morbid obesity (HCC) HSV-2 infection DX:HSV-2 infecti on Family History Medical History Relation Name Comments Ovarian cancer Aunt paternal aunt Lymphoma Mother nonHodgkins Colon cancer Paternal Grandfather Breast cancer Neg Hx Cancer of Small Bowel Neg Hx Kidney cancer Neg Hx Pancreatic cancer Neg Hx Uterine cancer Neg Hx Relation Name Status Comments Aunt Father Mother Paternal Grandfather Social History Tobacco Use Types Packs/Day Years Used Date Smoking Tobacco: Never Smokeless Tobacco: Never Tobacco Cessation:Counseling Given: Not Answered Alcohol Use Standard Drinks/Week Comments Yes 0 (1 standard drink = 0.6 oz pur e alcohol) Comments Unknown Sex and Gender Information Value Date Recorded Sex Assigned at Not on file Legal Sex Female 11:07 AM EST Gender Identity Not on file Sexual Orientation Not on file Obstetrics History Last Filed Vital Signs Vital Sign Reading Time Taken Comments Blood Pressure 120/83 07/21/2024 8:36 AM EST Pulse 93 07/21/2024 8:36 AM EST Temperature 36.4 ??C (97.6 ??F) 07/21/2024 8:36 AM ES T Respiratory Rate - - Oxygen Saturation 100% 07/21/2024 8:36 AM EST Inhaled Oxygen Concentration - - Weight 114 kg (252 lb) 07/21/2024 8:36 AM EST Height 152.4 cm (5') 07/21/2024 8:36 AM EST Body Mass Index 49.22 07/21/2024 8:36 AM EST Plan of Treatment Upcoming Encounters Date Type Department Care Team (Late st Contact Info) Description 01/04/2025 12:00 PM EDT Office Visit Internal Medicine - [facility] [address] [facility] [place] [address] Carlos Patino PA [address] [place] [address] Health Maintenance Due Date Last Done Comments HPV Vaccines (1 - 3-dose series) 2015 Hepatitis B Vaccines (1 of 3 - 19+ 3-dose series) 2019 Depression Screening 08/13/2022 Social Influencers of Health Screening 08/13/2022 COVID-19 Vaccine (3 - 2023-2 5 season) 2024 02/01/2021, 01/11/2021 Cervical Cancer Screening: P ap Smear 03/13/2025 03/13/2022, 03/04/2022 Gonorrhea/Chlamydia Screening 04/16/2025 04/16/2024 Influenza Vaccine (Season Ended) 2025 Cholesterol Screening (Lipid Panel) 06/06/2028 06/06/2023 DTaP,Tdap,and Td Vaccines (2 - Td or Tdap) 07/08/2034 07/08/2024 Meningococcal ACWY Vaccine Completed 12/18/2016 HIV Screening Completed 04/15/2024, 04/15/2024 Hepatitis C Screening Completed 04/15/2024 HIB Vaccines Aged Out No longer eligi ble based on patient's age to complete this topic Hepatitis A Vaccines Aged Out No long er eligible based on patient's age to complete this topic IPV Vaccines Aged Out No longer eligi ble based on patient's age to complete this topic MMR Vaccines Aged Out No longer eligi ble based on patient's age to complete this topic Meningococcal B Vaccine Aged Out No l onger eligible based on patient's age to complete this topic Pneumococcal Vaccine: Pediatrics (0 to 5 Years) and At-Risk Patients (6 to 64 Years) Aged Out No longer eligible b ased on patient's age to complete this topic RSV Immunization Patients Under 20 months Aged Out No longer eligible b ased on patient's age to complete this topic Varicella Vaccines Aged Out No longer eligible based on patient's age to complete this topic Procedures Procedure Name Priority Date/Time Associated Diagnosis Comments HM GONORRHEA/CHLAMYDIA SCRREENING Routine 04/16/2024 HEPATITIS C SCREENING Routine 04/15/2024 HIV SCREENING Routine 04/15/2024 LIPID PANEL Routine 06/06/2023 PAP SMEAR Routine 03/13/2022 from Last 3 Months or Most Recently Relevant to Health Maintenance Results * Gonorrhea/Chlamydia Screening (04/16/2024) Pathologist [facility] Gonorrhea/Chla mydia Screening abstracted [facility] Provider HEALTH MAINTENANCE Final Result * HIV Screening (04/15/2024) Pathologist [facility] HIV Screening abstracted Pending sale to [facility] HEALTH MAINTENANCE Final Result * Hepatitis C Screening (04/15/2024) Pathologist [facility] Hepatitis C Screening abstracted [facility] Provider HEALTH MAINTENANCE Final Result * (ABNORMAL) Lipid panel (06/06/2023) Pathologist [facility] LDL/HDL Ratio 4 0 - 4 Triglycerides 122 0 - 150 mg/dL Cholesterol 140 0 - 200 mg/dL HDL 38(A) >=40 mg/dL LDL Cholesterol 78 0 - 100 mg/dL Blood Venous blood specimen / Unknown [facility] Provider LAB BLOOD ORDERABLES Analy l Result * Pap Smear (03/13/2022) Pathologist [facility] Pap smear negative, abstracted [facility] Provider HEALTH MAINTENANCE Final Result from Last 3 Months or Most Recently Relevant to Health Maintenance Insurance [employer] [facility] [employer] Care Teams Head Banquet Waitress Relationship Specialty Start Date End Date Paige Delgado DO [address] [place] [address] PCP - General Internal Medicine 12/07/24
== END 2024-12-23 11:34 | disposition home or self-care (01) ==
PROVIDERS: PCP Pediatrics; Visit Provider Physician Assistant
DX: M54.6 Pain in thoracic spine (principal)

== ENCOUNTER → 2024-12-23 11:13 | Outpatient (BNVA) | payer OTHER, SELFPAY | PROVIDERS: PCP Pediatrics; Visit Provider Physician Assistant | DX: M54.6 Pain in thoracic spine (principal) | CPT/HCPCS: 99202 ==

== ENCOUNTER 2025-05-20 07:30 | Outpatient (AMB) | payer OTHER, SELFPAY ==
--- OUTSIDE RECORDS SUMMARY | 2025-05-20 07:31 | XMS_ITS | Patient Health Record ---
Author Organization [facility] Address [address] [facility] [place] [address] Care Team Providers Care Wheel Roller Name Role Phone DanaybryanDarcy Primary Care Provider Duc Bhakta Unavailable [phone] Reason For Referral No Information Medications Medication SIG (Take, Route, Fr equency, Duration) Notes Start Date End Date Status Gym Note . . . Medical from gym for the next 2 weeks until next visit 09/19/2017 No t-Taking Cephalexin 500 MG 1 tablet Orally Twic e a day; Duration: 10 day(s) Active Social History Tobacco Use: Social History Observation Description Date Details (start date - stop date) Never Smoker NA - NA Tobacco Use/Smoking Question Answer Notes Are you a: nonsmoker Additional Findings: Tobacco Non-User Current no n-smoker Alcohol Screen Question Answer Notes Did you have a drink containing alcohol in the p ast year? No Points 0 Interpretation Negative Tobacco use other than smoking: Question Answer Notes Are you an other tobacco user? No Plan Of Treatment Pending Test Test Name Order Date 70054- Debride <25 sq cm 10/03/2017 79645- I&D ABSCESS-COMPLICATED,MULTI 08/2018 70513- I&D ABSCESS-COMPLICATED,MULTI 01/2018 Insurance Providers Payer Name Payer Address Payer Phone Subscriber Number Group Number Insured Name Patient Relationship to Insured Coverage Start Date Coverage End Date [facility] [address] [facility] [id number] Kath Ortiz Other Medical (General) History Medical History History ICD Code Depression Surgical History Surgery Date(Month/Year) Ingrown Toe Nail
--- OUTSIDE RECORDS SUMMARY | 2025-05-20 07:32 | XMS_ITS | Clinical Summary ---
Author Organization [address] Address [address] [place] [phone] Phone Care Team Providers Care Home Comfort Advisor Name Role Phone Paige Delgado DO Primary Care Provider [phone] Allergies No known active allergies Medications tiZANidine (ZANAFLEX) 2 mg tablet Take 1 tablet (2 mg total) by mouth 3 (three) times a day if needed for muscle spasms. 30 tablet 1 04/08/2025 Active Active Problems Problem Noted Date Diagnosed Date Chlamydia infection 06/15/2024 Encounters Date Type Department Care Team Description 04/12/2025 Telephone Internal Medicine - [facility] [address] [place] [address] Paige Delgado DO 04/08/2025 1:30 PM EDT - 04/08/2025 11:59 PM EDT Hospital Encounter Xray - [facility] [address] [place] [address] Neck pain Discharge Disposition: Home or Self Care 04/08/2025 1:29 PM EDT - 04/08/2025 11:59 PM EDT Hospital Encounter Xray - [facility] [address] [place] [address] Chronic bilateral low back pain without sciatica Discharge Disposition: Home or Self Care 04/08/2025 1:00 PM EDT Office Visit Internal Medicine - [facility] [address] [place] [phone] Carlos Patino PA Neck pain (Primary Dx); Chronic bilateral low back pain without sciatica from Last 3 Months Medical History Medical [...] Hx Relation Name Status Comments Aunt Father Alive Mother Paternal Grandfather Social History Tobacco Use Types Packs/Day Years Used Date Smoking Tobacco: Never Smokeless Tobacco: Never Tobacco Cessation:Counseling Given: Not Answered Alcohol Use Standard Drinks/Week Comments Yes 0 (1 standard drink = 0.6 oz pur e alcohol) special occasions Housing Instability Answer Date Recorde d Are you worried that in the next 2 months you may not have stable housing? No 12/30/2024 Food Access & Nutrition Answer Date Rec orded Do you have access to a vari ety of food including fruits and vegetables? Yes 12/30/2024 Access to Healthcare Answer Date Record ed Within the last 3 months, ho w many times did you visit the emergency department for your medical care? 0 12/30/2024 Health Literacy Answer Date Recorded How often do you need to hav e someone help you when you read instructions, pamphlets, or other written material from your doctor or pharmacy? Never 12/30/2024 Caregiver: How often do you need to have someone help you when you read instructions, pamphlets, or other written material from your doctor or pharmacy? Not on file 12/30/2024 Financial Risk Answer Date Recorded How hard is it for you to pa y for the very basics like food, housing, medical care, and air conditioning / heating? Not very hard 12/30/2024 Transportation Answer Date Recorded Has the lack of transportati on kept you from meetings, work, or from getting things needed for daily living? No Has the lack of transportati on kept you from medical appointments or from getting medications? No 12/30/2024 Social Isolation Answer Date Recorded How often do you feel lonely or isolated from th ose around you? Never 12/30/2024 Food Risk Answer Date Recorded Within the past 12 months we worried whether our food would run out before we got money to buy more. Never true 12/30/2024 Within the past 12 months th e food we bought just didn't last and we didn't have money to get more. Never true 12/30/2024 Dependent Care Answer Date Recorded Do you need help finding or paying for care for your loved ones. For example, director maternal child or elderly care for an older adult? No 12/30/2024 Education Answer Date Recorded Do you think completing more education or training, like finishing a GED, going to college, or learning a trade, would be helpful for you? Yes 12/30/2024 Employment and Income Answer Date Recor ded During the last four weeks, have you been actively looking for work? No 12/30/2024 Living Situation Answer Date Recorded What is your living situation? 0 12/30/2024 Comments No Sex and Gender Information Value Date Recorded Sex Assigned at Female 12/30/2024 8:45 PM EDT Legal Sex Female 11:07 AM EST Gender Identity Female 12/30/2024 8:45 PM EDT Sexual Orientation Straight 12/30/2024 8: 45 PM EDT Obstetrics History Last Filed Vital Signs Vital Sign Reading Time Taken Comments Blood Pressure 114/68 04/08/2025 1:08 PM EDT Pulse 80 04/08/2025 1:08 PM EDT Temperature 36.4 C (97.6 F) 07/21/2024 8:36 AM EST Respiratory Rate 16 04/08/2025 1:08 PM EDT Oxygen Saturation 100% 07/21/2024 8:36 AM EST Inhaled Oxygen Concentration - - Weight 120 kg (265 lb) 04/08/2025 1:08 PM EDT Height 152.4 cm (5') 07/21/2024 8:36 AM EST Body Mass Index 51.75 07/21/2024 8:36 AM EST Plan of Treatment Upcoming Encounters Date Type Department Care Team (Late st Contact Info) Description 05/23/2025 3:30 PM EDT Evaluation [facility] [address] [address] Harlan Mendez, PT [address] [place] [address] 01/31/2026 8:00 AM EDT Office Visit Internal Medicine - [facility] [address] [place] [address] Carlos Patino, [place]DIE [address] [place] [address] Health Maintenance Due Date Last Done Comments HPV Vaccines (1 - 3-dose series) 2015 Hepatitis B Vaccines (1 of 3 - 19+ 3-dose series) 2019 Cervical Cancer Screening: Pap Smear 03/13/2025 03/13/2022, 03/04/2022 COVID-19 Vaccine (3 - 2024-2 6 season) 2025 02/01/2021, 01/11/2021 Influenza Vaccine (#1) 2025 Social Influencers of Health Screening 12/30/2025 12/30/2024 Cholesterol Screening (Lipid Panel) 06/06/2028 06/06/2023 DTaP,Tdap,and Td Vaccines (2 - Td or Tdap) 07/08/2034 07/08/2024 Meningococcal ACWY Vaccine Completed 12/18/2016 HIV Screening Completed 04/15/2024, 04/15/2024 Hepatitis C Screening Completed 04/15/2024 Gonorrhea/Chlamydia Screening Discontinued 04/16/2024 Depression Screening Completed 12/30/2024 HIB Vaccines Aged Out No longer eligi [...] 5 Years) and At-Risk Patients (6 to 49 Years) Aged Out No longer eligible based on patient's age to complete this topic RSV Immunization Patients Under 20 months Aged Out No longer eligible based on patient's age to complete this topic Varicella Vaccines Aged Out No longer eligible based on patient's age to complete this topic Procedures Procedure Name Priority Date/Time Associated Diagnosis Comments XR CERVICAL SPINE 4-5 VIEWS Routine 04/08/2025 1:41 PM EDT Neck pain XR LUMBAR SPINE 4+ VIEWS Routine 04/08/2025 1:41 PM EDT Chronic bilateral low back pain without sciatica GONORRHEA/CHLAMYDIA SCRREENING Routine 04/16/2024 HEPATITIS C SCREENING Routine 04/15/2024 HM HIV SCREENING Routine 04/15/2024 LIPID PANEL Routine 06/06/2023 HM PAP SMEAR Routine 03/13/2022 from Last 3 Months or Most Recently Relevant to Health Maintenance Results * XR Cervical Spine 4-5 Views (04/08/2025 1:41 PM EDT) Anatomical Region Laterality Modality Spine, C-spine Radiographic Norah ging 04/08/2025 4:23 PM EDT Impressions 04/08/2025 4:27 PM EDT No fracture or dislocation of the cervical spine. -------- FINAL REPORT -------- Dictated By: Catalina Salazar Dictated Date: 04/08/2025 16:23 ET Assigned Physician: Catalina Salazar Reviewed and Electronically Signed By: Catalina Salazar Signed Date: 04/08/2025 16:27 ET Workstation ID: [id number] Transcribed By: Self Edit Transcribed Date: 04/08/2025 16:23 ET Narrative 04/08/2025 4:27 PM EDT HISTORY: neck pain TECHNIQUE: 4 views of the cervical spine COMPARISON: None FINDINGS: The cervical spine is visualized from C1-C7. Vertebral body height and disc spaces are preserved. The cervical alignment is maintained without spondylolisthesis. No acute fracture or dislocation is seen. There is no prevertebral soft tissue swelling. Procedure Note Catalina Salazar MD - 04/08/2025 HISTORY: neck pain TECHNIQUE: 4 views of the cervical spine COMPARISON: None FINDINGS: The cervical spine is visualized from C1-C7. Vertebral body height anddisc spaces are preserved. The cervical alignment is maintained withoutspondylolisthesis. No acute fracture or dislocation is seen. There is noprevertebral soft tissue swelling. IMPRESSION: No fracture or dislocation of the cervical spine. -------- FINAL REPORT -------- Dictated By: Catalina Salazar Dictated Date: 04/08/2025 16:23 ET Assigned Physician: Catalina Salazar Reviewed and Electronically Signed By: Catalina Salazar Signed Date: 04/08/2025 16:27 ET Workstation ID: [id number] Transcribed By: Self Edit Transcribed Date: 04/08/2025 16:23 ET Carlos FRAZIER IMG XR PROCEDURES Final Result * XR Lumbar Spine 4+ Views (04/08/2025 1:41 PM EDT) Anatomical Region Laterality Modality Spine, L-spine Radiographic Norah ging 04/08/2025 4:31 PM EDT Impressions 04/08/2025 4:33 PM EDT No acute fracture or dislocation of the lumbar spine. -------- FINAL REPORT -------- Dictated By: Catalina Salazar Dictated Date: 04/08/2025 16:31 ET Assigned Physician: Catalina Salazar Reviewed and Electronically Signed By: Catalina Salazar Signed Date: 04/08/2025 16:33 ET Workstation ID: [id number] Transcribed By: Self Edit Transcribed Date: 04/08/2025 16:31 ET Narrative 04/08/2025 4:33 PM EDT HISTORY: lower back pain TECHNIQUE: 4 views of the lumbar spine COMPARISON: None FINDINGS: Vertebral body height and disc spaces are preserved. No acute fracture or dislocation is seen. The spinal alignment is well maintained without evidence of spondylolisthesis. Mild neuroforaminal stenosis at the lower lumbar spine. The sacroiliac joints are unremarkable. Procedure Note Catalina Salazar MD - 04/08/2025 HISTORY: lower back pain TECHNIQUE: 4 views of the lumbar spine COMPARISON: None FINDINGS: Vertebral body height and disc spaces are preserved. No acute fracture ordislocation is seen. The spinal alignment is well maintained withoutevidence of spondylolisthesis. Mild neuroforaminal stenosis at the lowerlumbar spine. The sacroiliac joints are unremarkable. IMPRESSION: No acute fracture or dislocation of the lumbar spine. -------- FINAL REPORT -------- Dictated By: Catalina Salazar Dictated Date: 04/08/2025 16:31 ET Assigned Physician: Catalina Salazar Reviewed and Electronically Signed By: Catalina Salazar Signed Date: 04/08/2025 16:33 ET Workstation ID: [id number] Transcribed By: Self Edit Transcribed Date: 04/08/2025 16:31 ET Carlos FRAZIER IMG XR PROCEDURES Final Result * Gonorrhea/Chlamydia Screening (04/16/2024) Pathologist [facility] Gonorrhea/Chla mydia Screening abstracted [facility] Provider HEALTH MAINTENANCE Final Result * HIV Screening (04/15/2024) [facility] HIV Screening abstracted [facility] Provider HEALTH MAINTENANCE Final Result * Hepatitis C Screening (04/15/2024) [facility] Hepatitis C Screening abstracted [facility] Provider HEALTH MAINTENANCE Final Result * (ABNORMAL) Lipid panel (06/06/2023) Pathologist [facility] LDL/HDL Ratio 4 0 - 4 Triglycerides 122 0 - 150 mg/dL Cholesterol 140 0 - 200 mg/dL HDL 38(A) >=40 mg/dL LDL Cholesterol 78 0 - 100 mg/dL Blood Venous blood specimen / Unknown Historical Provider LAB BLOOD ORDERABLES Analy l Result * Pap Smear (03/13/2022) Pap smear negative, abstracted Historical Provider HEALTH MAINTENANCE Final Result from Last 3 Months or Most Recently Relevant to Health Maintenance Insurance [facility] [employer] Care Teams Home Comfort Advisor Relationship Specialty Start Date End Date Paige Delgado DO [address] [place] [address] PCP - General Internal Medicine 12/07/24
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
--- OUTSIDE RECORDS SUMMARY | 2025-05-20 07:32 | XMS_ITS | Clinical Summary ---
Author Organization [facility] Address [address] [place] [address] Care Team Providers Care De Icer Installer Name Role Phone Joe Valdez MD Primary Care Provider [phone] Allergies No known active allergies Medications Medication Sig Dispensed Refills Start Date End Date Status ondansetron (ZOFRAN-ODT) 4 MG disintegrating tablet Take 1 Tablet by mouth every 8 hours as needed for Nausea for up to 7 days. 20 Tablet 0 02/23/2024 Active etonogestrel-ethinyl estradiol (NuvaRing) 0.12-0.015 MG/24HR vaginal ring Insert vaginally and leave in place for 3 consecutive weeks, then remove for 1 week. 3 Each 4 04/15/2024 Active triamcinolone (KENALOG) 0.025 % creamIndications:Abno rmal menses Apply to affected area 3-4x/day prn for irritation 30 g 0 05/25/2024 Active lidocaine (LMX) 4 % cream Apply 0.5 g topically as needed (apply to affected area 3-4xday as needed for pain) for up to 10 days. 30 g 0 05/25/2024 Active norethindrone (Tulana) 0.35 MG tablet Take 1 Tablet by mouth daily for 360 days. 90 Tablet 3 05/25/2024 Active ibuprofen (ADVIL,MOTRIN) 600 MG tablet Take 1 Tablet by mouth every 6 hours as needed for Pain for up to 30 days. 60 Tablet 1 05/27/2024 Active Active Problems Problem Noted Date Family history of ovarian cancer 024 Overview: EMPOWER neg Chlamydia infection 02/17/2024 Overview: Tx'd 02/17/2024, needs retesting in 3 months 04/15/2024 GC/CT neg Family History Medical History Relation Name Comments CA Ovarian Aunt paternal aunt Lymphoma Mother nonHodgkins CA Colon Paternal Grandfather CA Breast Negative Hx Cancer of Small Bowel Negative Hx Cancer of the Pancreas Negative Hx Cancer of the Renal Cell Negative Hx Uterine Cancer Negative Hx Relation Name Status Comments Aunt Father [...] file Not on file Not on file Last Filed Vital Signs Vital Sign Reading Time Taken Comments Blood Pressure 117/84 05/25/2024 1:06 PM EDT Pulse 62 05/25/2024 1:06 PM EDT Temperature - - Respiratory Rate 14 04/15/2024 3:32 PM EDT Oxygen Saturation 98% 03/25/2022 10: 14 AM EDT Inhaled Oxygen Concentration - - Weight 113.5 kg (250 lb 3.2 oz) 05/25/2024 1:06 PM EDT Height 157.5 cm (5' 2 ) 05/25/2024 1:06 PM EDT Body Mass Index 45.76 05/25/2024 1:06 PM EDT Plan of Treatment Health Maintenance Due Date Last Done Comments Covid-19 Vaccine (#1) 2000 HUMAN PAPILLOMAVIRUS (HPV) ( 1 - 2-dose series) 2011 BASELINE HEALTH EXAM 18-39 2019 DTAP/TDAP/TD (1 - Tdap) 2019 BMI CHECK/ADVISE 09/15/2024 01/17/2022, 01/2022 (Completed) DEPRESSION SCREENING/FOLLOWUP 09/15/2024 01/17/2022 SOCIAL NEEDS SCREENING 09/15/2024 CERVICAL CANCER SCREENING 03/04/2025 03/04/2022 INFLUENZA (#1) 2025 CHOLESTEROL SCREENING 06/06/2028 06/06/2023 PNEUMOCOCCAL VACCINE FOR HIG H RISK PATIENTS (#1) 2065 Care Teams De Icer Installer Relationship Specialty Start Date End Date Joe Valdez MD [address] [place] [address] PCP - General Internal Medicine 06/08/21
[2025-05-20 07:37] VITALS: BP 114/86; PULSE 84; RESP 17; TEMP 36.7; O2SAT 98; BMI 52.7
--- NOTE | 2025-05-20 07:37 | AM.OFFWIN_ITS ---
Intake Vital Signs 05/20/25 07:37 Height 5 ft Weight 270 lb BMI 52.7 BP 114/86 Blood Pressure Location Rt brachial Position Sitting Respiration 17 Pulse 84 Pulse Source Pulse Oximeter Temp 98.0 F Temp Source Oral Pulse Oximetry (%) 98 Oxygen Delivery Method Room Air Intake Visit Reasons: EP-?uti Intake Note: Pt is here today c/o vaginal itchyness and dry Patient Tobacco Use Status: Never used Tobacco Allergies No Known Allergies Allergy (Verified 05/20/25 07:48) HPI HPI Comments History of Present Illness Details History of Present Illness - The patient is a 25-year-old female pr esenting with vaginal dryness, itching, and burning. - Symptoms started a few days ago, at th e end of her menstrual period, with burning, itching, and discomfort. - Denies fevers, abnormal vaginal discha rge, low back pain. - She experiences dryness and pain durin g intercourse, despite using lubrication, and reports a slight odor but no abnormal discharge. - STI tests in April were negative, but she would like to repeat them today - She has a history of PCOS with irregul ar bleeding. Physical Exam General: Cooperative, healthy appearing, comfortable, no acute distress and well developed Orientation: Patient oriented x3 Limitations: No limitations Head: Normal to inspection Ears: Hearing grossly normal bilaterally Nose: Normal External nose present Face and sinus: Normal facial exam Eyes: Appearance normal, both eyes and all related structures Neck: Normal visual inspection and Yes full ROM Respiratory: Normal respiratory effort and able to speak in complete sentences. Skin: No rashes or lesions noted Neuro: Patient oriented x3 Extremities: Normal to inspection [facility] Medical History Knee pain GERD (gastroesophageal reflux disease) Hyperinsulinemia No known health problems Surgical History No history of previous surgery Family History Mother Non Hodgkin's lymphoma Father Arthritis Sister Celiac disease Sister No problems noted. Brother Alopecia Sister No problems noted. Social History Alcohol intake: current Alcohol intake frequency: holidays/special occasions only Patient Tobacco Use Status: Never used Tobacco Substance Use Type: Marijuana Review of Systems Const All systems reviewed & are unremarkable except as noted in HPI and below Physical Exam Vital Signs: Last Vital Signs Temp 98.0 F 05/20/25 07:37 Pulse 84 05/20/25 07:37 Resp 17 05/20/25 07:37 BP 114/86 05/20/25 07:37 Pulse Ox 98 05/20/25 07:37 Oxygen Delivery Method Room Air 05/20/25 07:37 BMI result Body Mass Index 52.7 Results AMB Urinalysis, Automated UA Leukoctes 0 Estrada/uL Last Edit by Sejal Encarnacion CMA on 05/20/25 07:53 UA Nitrite Negative Last Edit by Sejal Encarnacion, POPCORN ATTENDANT on 05/20/25 07:53 UA Urobilinogen 0.2 mg/dL Last Edit by Sejal Encarnacion, MARIBEL on 05/20/25 07:53 UA Protein 0 mg/dL Last Edit by Sejal Encarnacion, POPCORN ATTENDANT on 05/20/25 07:53 UA pH 6.0 Last Edit by Sejal Encarnacion, POPCORN ATTENDANT on 05/20/25 07:53 UA Blood 0 Alberto/uL Last Edit by Sejal Encarnacion, POPCORN ATTENDANT on 05/20/25 07:53 UA Specific Foster 1.030 Last Edit by Sejal Encarnacion, MARIBEL on 05/20/25 07:53 UA Ketone Negative Last Edit by Sejal Encarnacion, MARIBEL on 05/20/25 07:53 UA Bilirubin 0 mg/dL Last Edit by Sejal Encarnacion, POPCORN ATTENDANT on 05/20/25 07:53 UA Glucose 0 mg/dL Last Edit by Sejal Encarnacion, [facility] on 05/20/25 07:53 Results Reviewed Results Reviewed: Laboratory Last Values Urine pH (Auto) 6.0 05/20/25 07:38 Specific Foster (Auto) 1.030 05/20/25 07:38 Urine Protein (Auto) 0 mg/dL 05/20/25 07:38 Glucose (UA)(Auto) 0 mg/dL 05/20/25 07:38 Urine Ketones (Auto) Negative 05/20/25 07:38 Urine Blood (Auto) 0 Alberto/uL 05/20/25 07:38 Urine Nitrite (Auto) Negative 05/20/25 07:38 Urine Bilirubin (Auto) 0 mg/dL 05/20/25 07:38 Urine Urobilinogen (Auto) 0.2 mg/dL 05/20/25 07:38 Leukocyte Esterase (Auto) 0 Estrada/uL 05/20/25 07:38 Assessment & Plan Assessment & Plan (1) Vaginal itching: Code(s): N89.8 - Other specified noninflammatory disorders of vagina Plan: Patient was informed and verbally consented to the use of an ambient scribe for clinic note documentation during this visit. - A bacterial vaginosis panel was performed by the patient, results pending. - UA negative for leuks, neg nitrites, + protein and + blood - Urine culture was ordered to rule out urinary tract infection. - We will repeat CT/NG testing today as requested by the pt. - The patient was advised to abstain from sexual intercourse until the condition is treated. Orders: Orders AMB Urinalysis Automated Today Z13.9 - Encounter for screening, unspecified Bacterial Vaginosis Panel Today N89.8 - Other specified noninflammatory disorders of vagina CT NG by PCR Urine Today N89.8 - Other specified noninflammatory disorders of vagina Urine Culture Today N39.0 - Urinary tract infection, site not specified Coding Level of Care Code New Pt Level 4 (38368) Diagnoses Vaginal itching N89.8
== END 2025-05-20 08:59 | disposition home or self-care (01) ==
PROVIDERS: PCP Physician Assistant; Visit Provider Physician Assistant
DX: N89.8 Other specified noninflammatory disorders of vagina (principal)

== ENCOUNTER 2025-05-20 07:30 | Outpatient (REF) | payer OTHER, SELFPAY ==
[2025-05-20 11:28] LABS: Bacterial Vaginosis PCR NEGATIVE (Negative); Candida Group PCR NOT DETECTED (Not Detect); Candida glab krusei PCR NOT DETECTED (Not Detect); Trichomonas vaginalis PCR NOT DETECTED (Not Detect)
[2025-05-20 12:32] LABS: CT PCR Urine NOT DETECTED (Not Detect.); NG PCR Urine NOT DETECTED (Not Detect.)
== END 2025-05-20 07:31 | disposition home or self-care (01) ==
LOC: HO.LAB 07:30
PROVIDERS: PCP Physician Assistant; Visit Provider Physician Assistant
DX: N89.8 Other specified noninflammatory disorders of vagina (principal); Z13.89 Encounter for screening for other disorder; Z11.2 Encounter for screening for other bacterial diseases; Z11.8 Encounter for screening for other infectious and parasitic diseases; Z11.3 Encounter for screening for infections with a predominantly sexual mode of transmission
CPT/HCPCS: 81003; 81515; 87086; 87147; 87491; 87591; 99212

== ENCOUNTER 2025-05-31 08:12 | Outpatient (AMB) | payer OTHER, SELFPAY ==
[2025-05-31 08:14] VITALS: BP 118/82; PULSE 65; RESP 16; TEMP 36.6; O2SAT 99; BMI 52.7
--- NOTE | 2025-05-31 08:14 | AM.OFFWIN_ITS ---
Intake Vital Signs 05/31/25 08:14 Height 5 ft Weight 270 lb BMI 52.7 BP 118/82 Blood Pressure Location Lt brachial Position Sitting Respiration 16 Pulse 65 Pulse Source Pulse Oximeter Temp 97.9 F Temp Source Oral Pulse Oximetry (%) 99 Oxygen Delivery Method Room Air Intake Visit Reasons: EP UTI still? Patient Tobacco Use Status: Never used Tobacco Allergies No Known Allergies Allergy (Verified 05/20/25 07:48) HPI HPI Comments History of Present Illness Details History - The patient is a 25-year-old female pr esenting with vaginal dryness, itching, and burning. - Symptoms began a few days prior to the visit, with no associated fever, abnormal discharge, or low back pain. - Initial urine test on 05/20 was negative for a urinary tract infection, but the culture was contaminated. - Gonorrhea and chlamydia tests were neg ative, as was the bacterial vaginosis panel. - The patient was prescribed amoxicillin by another provider for a presumed urinary tract infection, which she believes led to a yeast infection. - She reports a white discharge with a y easty smell, but no fishy odor. - The patient has a history of developin g yeast infections following antibiotic use. Physical Exam General: Cooperative, healthy appearing, comfortable, no acute distress and well developed Orientation: Patient oriented x3 Limitations: No limitations Head: Normal to inspection Ears: Hearing grossly normal bilaterally Face and sinus: Normal facial exam Neck: Normal visual inspection and Yes full ROM Respiratory: Normal respiratory effort and able to speak in complete sentences. Skin: No rashes or lesions noted Neuro: Patient oriented x3 [facility] Medical History (Updated 05/31/25 @ 08:28 by Brooklyn Garcia PA-C) Cystitis Knee pain GERD (gastroesophageal reflux disease) Hyperinsulinemia No known health problems Surgical History No history of previous surgery Family History Mother Non Hodgkin's lymphoma Father Arthritis Sister Celiac disease Sister No problems noted. Brother Alopecia Sister No problems noted. Social History Alcohol intake: current Alcohol intake frequency: holidays/special occasions only Patient Tobacco Use Status: Never used Tobacco Substance Use Type: Marijuana Review of Systems Const All systems reviewed & are unremarkable except as noted in HPI and below Physical Exam Vital Signs: Last Vital Signs Resp 16 05/31/25 08:14 Oxygen Delivery Method Room Air 05/31/25 08:14 Assessment & Plan Assessment & Plan (1) Vaginal discharge: Code(s): N89.8 - Other specified noninflammatory disorders of vagina Plan: Plan Patient was informed and verbally consented to the use of an ambient scribe for clinic note documentation during this visit. 1. Possible Yeast Infection - Plan to repeat the bacterial vaginosis panel to confirm diagnosis. - If yeast infection is confirmed, prescribe Diflucan with instructions to take one pill initially and a second pill if symptoms persist after 72 hours. - UA was 2+ leuks, neg nitrites. - Plan to repeat urine culture to ensure a clean catch and accurate results. Orders: Orders Urine Culture Today N39.0 - Urinary tract infection, site not specified Bacterial Vaginosis Panel Today N89.8 - Other specified noninflammatory disorders of vagina Coding Level of Care Code New Pt Level 3 (97414) Diagnoses Vaginal discharge N89.8
--- OUTSIDE RECORDS SUMMARY | 2025-05-31 09:26 | XMS_ITS | Patient Health Record ---
Author Organization [facility] myriam Cord Address [address] [place] [address] Care Team Providers Care Crane Crew Supervisor Name Role Phone DanaybryanDarcy Primary Care Provider Duc Bhakta Unavailable [phone] Reason For Referral No Information Medications Medication [...] Treatment Pending Test Test Name Order Date 74001- Debride <25 sq cm 10/03/2017 83852- I&D ABSCESS-COMPLICATED,MULTI 08/2018 [id number]- I&D ABSCESS-COMPLICATED,MULTI 01/2018 Insurance Providers Payer Name Payer Address Payer Phone Subscriber Number Group Number Insured Name Patient Relationship to Insured Coverage Start Date Coverage End Date [facility] [address] [facility] [id number] [phone] [id number] Kath Ortiz Other Medical (General) History Medical History History ICD Code Depression Surgical History Surgery Date(Month/Year) Ingrown Toe Nail
--- OUTSIDE RECORDS SUMMARY | 2025-05-31 09:26 | XMS_ITS | Clinical Summary ---
Author Organization [address] Address [address] [place] [address] Phone Care Team Providers Care Electric Repair Supervisor Name Role Phone Paige Delgado DO Primary Care Provider [phone] Allergies No known active allergies Medications tiZANidine (ZANAFLEX) 2 mg tablet Take 1 tablet (2 mg total) by mouth 3 (three) times a day if needed for muscle spasms. 30 tablet 1 04/08/2025 Active valACYclovir (VALTREX) 500 mg tablet TAKE 1 TABLET BY MOUTH EVERY DAY 90 tablet 3 05/23/2025 Active Active Problems Problem Noted Date Diagnosed Date Chlamydia infection 06/15/2024 Encounters Date Type Department Care Team Description 05/23/2025 3:30 PM EDT Evaluation [address] [address] Harlan Mendez M, PT Neck pain; Chronic bilateral low back pain without sciatica 04/12/2025 Telephone Internal Medicine - [facility] [address] [place] [address] Paige Delgado DO 04/08/2025 1:30 PM EDT - 04/08/2025 11:59 PM EDT Hospital Encounter Xray - [facility] [address] [place] [address] Neck pain Discharge Disposition: Home or Self Care 04/08/2025 1:29 PM EDT - 04/08/2025 11:59 PM EDT Hospital Encounter Xray - [facility] [address] [facility] [place] [phone] Chronic bilateral low back pain without sciatica Discharge Disposition: Home or Self Care 04/08/2025 1:00 PM EDT [facility] [place] [phone] Carlos Patino PA Neck pain (Primary Dx); [...] care for your loved ones. For example, child care coordinator or elderly care for an older adult? [...] Care Team (Late st Contact Info) Description 06/07/2025 5:30 PM EDT Treatment [address] [address] Flaquito Medrano, MELTER SUPERVISOR [employer] 06/09/2025 5:30 PM EDT Treatment [address] [address] Flaquito Medrano, MELTER SUPERVISOR [employer] 06/14/2025 5:30 PM EDT Treatment [address] [address] Flaquito Medrano, MELTER SUPERVISOR [employer] 06/16/2025 6:00 PM EDT Treatment [address] [address] Flaquito Medrano, MELTER SUPERVISOR [employer] 06/20/2025 5:30 PM EDT Treatment [address] [address] Flaquito Medrano, MELTER SUPERVISOR [employer] 06/23/2025 5:30 PM EDT Treatment [address] [address] Flaquito Medrano, MELTER SUPERVISOR [employer] 06/27/2025 5:30 PM EDT Treatment [address] [address] Flaquito Medrano, MELTER SUPERVISOR [employer] 06/30/2025 5:30 PM EDT Treatment [address] [address] Flaquito Medrano, MELTER SUPERVISOR [employer] 07/07/2025 5:30 PM EDT Treatment [address] [address] Flaquito Medrano, MELTER SUPERVISOR [employer] 07/14/2025 5:30 PM EDT Treatment [facility] [address] [facility] [address] [place] [address] Flaquito Medrano, MELTER SUPERVISOR [employer] 01/31/2026 8:00 AM EDT Office Visit Internal Medicine - [facility] [address] [place] [address] Carlos Patino PA [address] [place] [address] Health Maintenance Due Date Last Done Comments [...] on patient's age to complete this topic Goals Goal Patient Goal Type Associated Problems Recent Progress Patient-Stated? Author feel better General Yes Harlan Mendez PT PT STG x 8 visits from [facility] 05/23/25 General No Harlan Mendez PT Note: [x] = goal MET [] = goal NOT MET NECK: [] Pt will report a 2/10 average pain level decrase, [] Pt will improve C rotation to 70 deg to aid in looking over shoulder, [] Pt will be able to read/use phone x 90 minutes without having to raising them to eye level due to neck pain , [] Pt will improve deep neck flexor strength to 10 seconds, [] Pt will improve lower trap strength to 4-/5, [] Pt will improve C flex ROM to 50 degrees BACK: [] Pt will improve lumbar flexion to 75 degrees to allow dressing LE without assist, [] Pt will report average pain level decrease of 2 /10, [] Pt will increase sitting capacity to 90 minutes, [] Pt will be able to perform full bridge in order to improve bed mobility [] Pt will not require breaks > every 30 min while cleaning PT LTG x 16 visits from [facility] 05/23/2025 General No Harlan Mendez PT Note: [x] = goal MET [] = goal NOT MET Neck: [] Pt will be able to look over either shoulder without requiring trunk rotation, [] Pt will be able to look overhead for things such as placing/retrieving items on top shelf or changing light bulbs, [] Pt will be able to lift grocery bags without limitations due to neck pain Back: [x] = goal MET [] = goal NOT MET [] Pt will be able to sit through a 2hr movie, [] Pt will be able to lift case of water without being limited by back pain, [] Pt will be able to load/unload washing machine without being limited by back pain , [] Pt will require no more than 1 rests due to back Sx while cleaning home [] Pt will be able to ready 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 [employer] client without requiring sitting or rest Procedures Procedure Name Priority Date/Time Associated Diagnosis [...] Signed Date: 04/08/2025 16:27 ET Workstation ID: [id number] Transcribed By: Self Edit Transcribed Date: 04/08/2025 [...] Signed Date: 04/08/2025 16:27 ET Workstation ID: [id number] Transcribed By: Self Edit Transcribed Date: 04/08/2025 [...] Signed Date: 04/08/2025 16:33 ET Workstation ID: [id number] Transcribed By: Self Edit Transcribed Date: 04/08/2025 [...] Signed Date: 04/08/2025 16:33 ET Workstation ID: [id number] Transcribed By: Self Edit Transcribed Date: 04/08/2025 16:31 ET Carlos FRAZIER IMG XR PROCEDURES Final Result * Gonorrhea/Chlamydia Screening (04/16/2024) [facility] Gonorrhea/Chla mydia Screening abstracted [facility] Provider HEALTH MAINTENANCE Final Result * HIV Screening (04/15/2024) [facility] HIV Screening abstracted [facility] Provider HEALTH MAINTENANCE Final Result * Hepatitis C Screening (04/15/2024) [facility] Hepatitis C Screening abstracted [facility] Provider HEALTH MAINTENANCE Final Result * (ABNORMAL) Lipid panel (06/06/2023) [facility] LDL/HDL Ratio 4 0 - 4 Triglycerides 122 0 - 150 mg/dL Cholesterol 140 0 - 200 mg/dL HDL 38(A) >=40 mg/dL LDL Cholesterol 78 0 - 100 mg/dL Blood Venous blood specimen / Unknown us Historical Provider LAB BLOOD ORDERABLES Analy l Result * Pap Smear (03/13/2022) Pap smear negative, abstracted us Historical Provider HEALTH MAINTENANCE Final Result from Last 3 Months or Most Recently Relevant to Health Maintenance Insurance [facility] [place] [address] Care Teams Electric Repair Supervisor Relationship Specialty Start Date End Date Paige Delgado DO [address] [place] [address] PCP - General Internal Medicine 12/07/24
== END 2025-05-31 09:17 | disposition home or self-care (01) ==
PROVIDERS: PCP Physician Assistant; Visit Provider Physician Assistant
DX: N89.8 Other specified noninflammatory disorders of vagina (principal)

== ENCOUNTER 2025-05-31 08:12 | Outpatient (REF) | payer OTHER, SELFPAY ==
[2025-05-31 12:11] LABS: Bacterial Vaginosis PCR NEGATIVE (Negative); Candida Group PCR DETECTED (Not Detect); Candida glab krusei PCR NOT DETECTED (Not Detect); Trichomonas vaginalis PCR NOT DETECTED (Not Detect)
== END 2025-05-31 08:13 | disposition home or self-care (01) ==
LOC: HO.LAB 08:12
PROVIDERS: Physician Assistant; PCP Physician Assistant
DX: N89.8 Other specified noninflammatory disorders of vagina (principal); N39.0 Urinary tract infection, site not specified
CPT/HCPCS: 81003; 81515; 87086; 87088; 87186; 99212

== ENCOUNTER 2025-07-05 11:17 | Outpatient (AMB) | payer OTHER, SELFPAY ==
--- NOTE | 2025-07-05 11:18 | MHC.OFFWIV ---
Intake Vital Signs 07/05/25 11:20 Height 5 ft Weight 265 lb 6 oz BMI 51.8 BP 120/80 Blood Pressure Location Lt brachial Position Sitting Pulse 112 H Pulse Source Pulse Oximeter Temp 98.2 F Temp Source Oral Pulse Oximetry (%) 98 Oxygen Delivery Method Room Air Intake Visit Reasons: EP Green toenail? Intake Note: Patient presents with c/o green colored right great toenail x3-4 days Patient Tobacco Use Status: Never used Tobacco Allergies No Known Allergies Allergy (Verified 07/05/25 11:22) Medication List - Last Reconciled 07/05/25 by Willard Flores MD valacyclovir 500 mg PO DAILY Do you need a note to return to daycare/school/sports/work: No HPI EP Green toenail? HPI Details History of Present Illness The patient is a 25-year-old female presenting with a discoloration of the toenail. Discoloration of the toenail: - Noticed a few days ago after removing a fake nail. - Duration: Had a fake nail for a few months, not sure when discoloration specifically began. - No pain, sensation is normal. - Concern about color change not associated with pain or sensation loss. - Fearful it might be a fungal infection, but reassured it does not appear so. - Appears to be due to trauma, as indicated by a possible small blood vessel rupture under the toenail, described as a bruise . Problem List - Discoloration of toenail Plan - The discoloration of the toenail is suspected to be due to trauma, with a small blood vessel rupture under the nail. - The recommendation is to allow the discoloration to grow out naturally over two to three weeks for potential resolution. - If the discoloration does not improve, a referral to a teller coordinator for a biopsy may be required. - Reassurance provided that it is unlikely to be a fungal infection. - Suggested follow-up with primary care provider if needed; nothing urgent. Review of Systems Negative except HPI Physical Exam General: No acute distress HEENT: No acute findings Neck: Supple SUBASSEMBLIES WIRER: Alert awake oriented x3 motor intact Skin: Normal turgor, noted discoloration on right big toenail consistent with trauma, not fungal in appearance [facility] Medical History Cystitis Knee pain GERD (gastroesophageal reflux disease) Hyperinsulinemia No known health problems Surgical History No history of previous surgery Family History Mother Non Hodgkin's lymphoma Father Arthritis Sister Celiac disease Sister No problems noted. Brother Alopecia Sister No problems noted. Social History Alcohol intake: current Alcohol intake frequency: holidays/special occasions only Patient Tobacco Use Status: Never used Tobacco Substance Use Type: Marijuana Physical Exam Vital Signs: Last Vital Signs Temp 98.2 F 07/05/25 11:20 Pulse 112 H 07/05/25 11:20 BP 120/80 07/05/25 11:20 Pulse Ox 98 07/05/25 11:20 Oxygen Delivery Method Room Air 07/05/25 11:20 BMI result Body Mass Index 51.8 Assessment & Plan Assessment & Plan (1) Toenail bruise: Code(s): S90.229A - Contusion of unspecified lesser toe(s) with damage to nail, initial encounter Qualifiers: Encounter type: initial encounter Laterality: right Qualified Code(s): S90.221A - Contusion of right lesser toe(s) with damage to nail, initial encounter Plan Discoloration of the toenail: - Noticed a few days ago after removing a fake nail. - Duration: Had a fake nail for a few months, not sure when discoloration specifically began. - No pain, sensation is normal. - Concern about color change not associated with pain or sensation loss. - Fearful it might be a fungal infection, but reassured it does not appear so. - Appears to be due to trauma, as indicated by a possible small blood vessel rupture under the toenail, described as a bruise . Problem List - Discoloration of toenail Plan - The discoloration of the toenail is suspected to be due to trauma, with a small blood vessel rupture under the nail. - The recommendation is to allow the discoloration to grow out naturally over two to three weeks for potential resolution. - If the discoloration does not improve, a referral to a teller coordinator for a biopsy may be required. - Reassurance provided that it is unlikely to be a fungal infection. - Suggested follow-up with primary care provider if needed; nothing urgent. Coding Level of Care Code Est Pt Level 3 (94887) Diagnoses Contusion of toenail of right foot, initial encounter S90.221A Encounter type: initial encounter Laterality: right
[2025-07-05 11:20] VITALS: BP 120/80; PULSE 112; TEMP 36.8; O2SAT 98; BMI 51.8
== END 2025-07-05 12:49 | disposition home or self-care (01) ==
PROVIDERS: PCP Physician Assistant; Visit Provider Internal Medicine
DX: S90.221A Contusion of right lesser toe(s) with damage to nail, initial encounter (principal)

== ENCOUNTER → 2025-07-05 11:17 | Outpatient (BNVA) | payer OTHER, SELFPAY | PROVIDERS: PCP Physician Assistant; Visit Provider Internal Medicine | DX: S90.221A Contusion of right lesser toe(s) with damage to nail, initial encounter (principal); X58.XXXA Exposure to other specified factors, initial encounter; Y93.9 Activity, unspecified; Y92.9 Unspecified place or not applicable; Y99.9 Unspecified external cause status | CPT/HCPCS: 99212 ==

== ENCOUNTER 2025-08-22 08:27 | Outpatient (AMB) | payer OTHER, SELFPAY ==
--- NOTE | 2025-08-22 12:18 | A.OFFVIS_ITS ---
VS Expanded 08/22/25 12:25 Height 5 ft Weight 267 lb 4 oz BMI 52.2 Body Fat % 48.2 Body Fat Mass 128.8 Fat Free Mass 138.4 Visceral Fat Rating 15 Body Water % 37.3 Body Water Mass 99.6 Basal Metabolic Rate/Score 2,021 Intake Visit Reasons: [employer] SWL/MWL BMI 52.2 Allergies No Known Allergies Allergy (Verified 08/22/25 12:37) Medication List - Last Reconciled 08/22/25 by Miller oPlk MD valacyclovir 500 mg PO DAILY HPI HPI [employer] SWL/MWL BMI 52.2: Details: Start time: 12.10pm, End time: 12.55pm ?I spent 40 minutes speaking with the patient on the phone plus an additional 5 minutes reviewing and updating records for a total of 45 minutes HPI Comments Details: Previous weight loss efforts: [facility] Wakes up: 11am, Sleeps: 2am, occasionally naps in the afternoon Breakfast: skips Lunch: 3pm (chicken, eggs, rice) Dinner: 7-8pm (same as lunch) Snacks: 12pm (yogurt), 4-5pm (chocolate, yogurt), 11pm (same) Exercise: none Beverages: Coffee: none, Tea: rarely, Soda: none, Juice: none, ETOH: 1/month [facility] Medical History (Updated 08/22/25 @ 12:25 by Miller Polk MD) PCOS (polycystic ovarian syndrome) Anxiety Depression Back pain Cystitis Knee pain GERD (gastroesophageal reflux disease) Hyperinsulinemia No known health problems Surgical History No history of previous surgery Family History Mother Non Hodgkin's lymphoma Father Arthritis Sister Celiac disease Sister No problems noted. Brother Alopecia Sister No problems noted. Social History Alcohol intake: current Alcohol intake frequency: holidays/special occasions only Patient Tobacco Use Status: Never used Tobacco Substance Use Type: Marijuana Telehealth Telehealth Telehealth Platform: Telephone Location of provider rendering services: practice address Location of patient: address on file Patient Identification confirmed using: Name, : Yes Telehealth method: voice only Patient verbally consented to treatment: Yes Patient verbally consented to billing insurance company: Yes Patient informed of any privacy concerns related to visit: Yes Minutes spent on Phone/Video with Pt.: 45 Assessment & Plan Assessment & Plan (1) Morbid obesity: Code(s): E66.01 - Morbid (severe) obesity due to excess calories Category: Medical Plan: 1.???Plan for lap sleeve gastrectomy. If diaphragmatic or ventral hernias are present at time of surgery, these will be repaired laparoscopically as well. I emphasized the importance of close follow-up, adherence to instructions and good communication. The surgery does not replace the need to change your lifestlyle which is the cause of the obesity problem. The surgery provides the motivation to try again to change your lifestyle, it reduces the appetite and make the transition to a better lifestyle easier and doubles the amount of weight you would lose compared to doing the lifestyle change without the surgery. You will need to be on a liquid diet with protein shakes for 2 weeks before surgery to maximize weight loss and boost your nutritional status to recover better from surgery and also for the first two weeks after surgery to let the stomach heal before we introduce other foods. After the first 2 weeks we will introduce protein bars and soft foods like scrambled eggs, cottage cheese and yogurt and after the 6th week will introduce meat, fish and cooked vegetables in small amounts. Over time you should be able to eat everything in small amounts. Side effects like nausea, vomiting, heartburn or abdominal pain are not common in the practice unless you are not following in the practice. This operation requires lifetime commitment to following in our practice and communication with me. You will much less weight and experience side effects if you don?t communicate or not following in the practice. Complications are rare and in our practice is about 1/10 of the national average. However, you can develop bleeding that may require transfusion (hasn?t happened for year in the practice), you may from complications (we did not have any deaths in the practice) and infections. Infections are usually a result of breakdown in communication or not understanding or following directions correctly. They are difficult to treat, they can happen during the first 6 weeks, they may require to be in the hospital for weeks or even months, not being able to eat by mouth and you may have drains and surgeries to try and correct the issue. Other risks and complications includ e possible conversion to an open procedure, leaks, small bowel obstruction, blood clots, cardiac, or pulmonary complications, as fci complications such as ulcers, insufficient weight loss and vitamin deficiencies. 2. Nutritional counseling. Start with one premade PREMIER protein (buy at [employer] or [employer]) shake (8oz of Premier and NOT the whole bottle) at 12pm-2pm, one protein bar (Fit Crunch protein bar, buy at [employer], or [employer]) at 3pm-5pm, dinner at 6pm (10 forks of protein and 10 forks of salad/vegetables), another premade PREMIER protein shake (8oz of Premier and NOT the whole bottle) at 8pm- 10pm and another [employer] protein bar at 11pm-1am. So you do 2 protein shakes, 2 protein bars and one meal per day. Meal to include lean meat (beef, fish, pork, turkey, chicken), or portuguese yogurt, or egg whites, or beans with a salad with olive oil and fruits (berries, pears, apples, kiwi). Avoid salt, breads, potatoes, rice, pasta, desserts. 3. Each shake would be drunk slowly, like coffee in a period of 2 hours. 4. Cut each bar in 4 pieces and eat each piece in 30min ?to make each bar last 2 hours. 5. I emphasized the importance of measuring accurately the food portion and measure it when serving the food in plate 6. The meal portions include 10 full-size forks of meat and 10 full-size forks of salad. You always eat the meat portion but you can replace up to 5 forks for salad/vegetables with rice, potatoes or pasta, or a fruit ?if you like. The less you do it the better weight loss will be. 7. One full-size fork is what it can be scooped on the fork without falling aside and not what can be bit with the fork. Use regular forks like those you find in a typical restaurant. 8.? Please buy the body composition scale we discussed and send me weight measurements as soon as possible and then once a week. Always include your diet and exercise plan. 10. The best choice would be to purchase a stationary bike at home that can track calories. Let me know if you do so I can give you an exercise plan. 11.?It is important of avoiding and for at least 18 months postoperatively and has been discussed at the infosession. 12. Goal is to lose at least 1.5-2lbs per week 13. Goal to lose 10% of your weight before surgery, which is about 27lbs. Ultimate weight goal: 240lbs before surgery 14. Please follow the diet plan exactly without any change. If you don't like something about the plan or you feel hungry you need to communicate with me so I can help you revise the plan. You should not change the plan yourself 15. To be scheduled for EGD to assess the stomach's anatomy. The possibility of biopsies was discussed. Patient needs to avoid use of NSAIDs and aspirin for 1 week prior to EGD. You must be on liquids only the day before your endoscopy. Risks of perforation and bleeding was discussed with the patient. This will be an outpatient procedure with IV sedation. ?16. I ordered a medication to help you with the weight loss which is called Zepbound. My office will try to authorize it. Please let me know when you receive it so I can give you a meal and exercise plan. Common side effects include nausea, vomiting, constipation, diarrhea, abdominal pain. Please let me know if you develop any of these symptoms. Orders: Orders Insulin Today E66.01 - Morbid (severe) obesity due to excess calories Hemoglobin A1c Today E66.01 - Morbid (severe) obesity due to excess calories IRON PROFILE Today E66.01 - Morbid (severe) obesity due to excess calories Comprehensive Met. Panel Today E66.01 - Morbid (severe) obesity due to excess calories Vitamin B12 and Folate Today E66.01 - Morbid (severe) obesity due to excess calories C Reactive Protein Today E66.01 - Morbid (severe) obesity due to excess calories Vitamin B1 Today E66.01 - Morbid (severe) obesity due to excess calories Vitamin A Today E66.01 - Morbid (severe) obesity due to excess calories TSH reflex Free T4 Today E66.01 - Morbid (severe) obesity due to excess calories Vitamin D 25-OH Total Today E66.01 - Morbid (severe) obesity due to excess calories ECG 12 lead EKG Today E66.01 - Morbid (severe) obesity due to excess calories H Pylori Breath Test Today E66.01 - Morbid (severe) obesity due to excess calories Complete Blood Count Auto Diff Today E66.01 - Morbid (severe) obesity due to excess calories Lipid Panel Today E66.01 - Morbid (severe) obesity due to excess calories Zinc Today E66.01 - Morbid (severe) obesity due to excess calories Ferritin Today E66.01 - Morbid (severe) obesity due to excess calories XR chest 2V Today E66.01 - Morbid (severe) obesity due to excess calories Referrals Behavioral Health Referral E66.01 - Morbid (severe) obesity due to excess calories Nutrition/Dietitian Referral E66.01 - Morbid (severe) obesity due to excess calories Medications: New tirzepatide (weight loss) (Zepbound) for 4 weeks 2.5 mg (0.5 mL) subcut QWEEK 2 mL 0RF E16.1 - Other hypoglycemia, E66.01 - Morbid (severe) obesity due to excess calories
[2025-08-22 12:25] VITALS: BMI 52.2
== END 2025-08-22 12:56 | disposition home or self-care (01) ==
LOC: HO.HBS 08:27
PROVIDERS: PCP Physician Assistant; Visit Provider Surgery
DX: E66.01 Morbid (severe) obesity due to excess calories (principal)
CPT/HCPCS: 99204

== ENCOUNTER 2025-08-31 10:59 | Outpatient (REF) | payer OTHER, SELFPAY ==
--- OUTSIDE RECORDS SUMMARY | 2025-08-25 10:40 | XMS_ITS | Encounter Summary ---
Author Organization [place] [address] Care Team Providers Care Engineering Lab Technician Name Role Phone Paige Delgado DO Primary Care Provider [phone] Encounter Details Date Type Department Care Team (Latest Contact Info) Description 08/25/2025 10:40 AM EST - 08/25/2025 11:59 PM [facility] Hospital Encounter Xray - [facility] [address] [place] [phone] Right knee pain, unspecified chronicity Discharge Disposition: Home or Self Care Social History Tobacco Use Types Packs/Day Years [...] Record ed Within the last 3 months, cody hansen many times did you visit the emergency [...] care for your loved ones. For example, exceptional children teacher assistant or elderly care for an older adult? [...] Date Recorded What is your living situation? Unrecognized valu e 12/30/2024 Comments No Sex and Gender Information Value Date Recorded Sex Assigned at Female 12/30/2024 8:45 PM EDT Legal Sex Female 11:07 AM EST Gender Identity Female 12/30/2024 8:45 PM EDT Sexual Orientation Straight 12/30/2024 8: 45 PM EDT documented as of this encounter Medications at Time of Discharge ibuprofen (ADVIL,MOTRIN) 800 mg tablet Take 1 tablet (800 mg total) by mouth 3 (three) times a day if needed for mild pain (pain). 60 tablet 08/25/2025 10/24/2025 ondansetron (ZOFRAN) 8 mg tablet TAKE 1 TABLET BY MOUTH EVERY 8 HOURS IF NEEDED FOR NAUSEA OR VOMITING FOR UP TO 7 DAYS. 20 tablet 1 08/23/2025 valACYclovir (VALTREX) 500 mg tablet TAKE 1 TABLET BY MOUTH EVERY DAY 90 tablet 3 05/23/2025 documented as of this encounter Discharge Disposition Disposition Code Departure Means Destination Home or Self Care documented in this encounter Plan of Treatment Upcoming Encounters Date Type Department Care Team (Late st Contact Info) Description 09/02/2025 10:45 AM EST Treatment Outpatient Rehabilitation [address] [phone] Harlan Mendez, PT [address] [place] [address] 09/06/2025 12:00 PM EST Treatment Outpatient [address] [phone] Harlan Mendez, PT [address] [place] [address] 09/13/2025 11:00 AM EST Treatment Outpatient [address] [phone] Harlan Mendez, PT [address] [place] [address] 09/20/2025 12:00 PM EST Treatment Outpatient [address] [phone] Harlan Mendez, PT [address] [place] [address] 01/02/2026 2:00 PM EDT Office Visit Obstetrics & Gynecology - [address] [phone] Yamini Mendez, NATI [address] [place] [address] 02/08/2026 9:00 AM EDT [facility] [address] [place], [place] [phone] Carlos Patino PA [address] [place], [place] documented as of this encounter Goals Goal Patient Goal Type Associated Problems Recent Progress Patient-Stated? Author feel better General Improving( 7:26 PM EDT) Yes Harlan Mendez PT PT STG x 8 visits from [facility] 05/23/25 General No Harlan Mendez PT Note: [x] = goal MET [] = goal NOT MET NECK: [x] Pt will report a 2/10 average pain level decrase, [x] Pt will improve C rotation to 70 deg to aid in looking over shoulder, [x] Pt will be able to read/use phone x 90 minutes without having to raising them to eye level due to neck pain , [x] Pt will improve deep neck flexor strength to 10 seconds, [x] Pt will improve lower trap strength to 4-/5, [x] Pt will improve C flex ROM to 50 degrees BACK: [x] Pt will improve lumbar flexion to 75 degrees to allow dressing LE without assist, [] Pt will report average pain level decrease of 2 /10, [] Pt will increase sitting capacity to 90 minutes, [x] Pt will be able to perform full bridge in order to improve bed mobility [x] Pt will not require breaks > every 30 min while cleaning PT LTG x 22 visits from [facility] 05/23/2025 (updated 08/26/25) General Improving( 7:26 PM EDT) No Harlan Mendez, PT Note: [x] = goal MET [] = goal NOT MET Neck: [x] Pt will be able to look over either shoulder without requiring trunk rotation, [x] Pt will be able to look overhead for things such as placing/retrieving items on top shelf or changing light bulbs, [x] Pt will be able to lift grocery [...] [] Pt will be 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 -------- FINAL REPORT -------- Dictated By: Catalina Salazar Dictated Date: 08/25/2025 22:16 ET Assigned Physician: Catalina Salazar Reviewed and Electronically Signed By: Catalina Salazar Signed Date: 08/25/2025 22:18 ET Workstation ID: [id number] Transcribed By: Self Edit Transcribed Date: 08/25/2025 22:16 ET Narrative 08/25/2025 10:18 PM EST HISTORY: right knee pain TECHNIQUE: 4 views of the right knee COMPARISON: None FINDINGS: No acute fracture or dislocation is seen. There is no joint effusion present. The medial and lateral joint spaces appear normal. Soft tissues are unremarkable. Procedure Note Catalina Salazar MD - 08/25/2025 HISTORY: right knee pain TECHNIQUE: 4 views of the right knee COMPARISON: None FINDINGS: No acute fracture or dislocation is seen. There is no joint effusionpresent. The medial and lateral joint spaces appear normal. Soft tissuesare unremarkable. IMPRESSION: No acute fracture or dislocation of the right knee. -------- FINAL REPORT -------- Dictated By: Catalina Salazar Dictated Date: 08/25/2025 22:16 ET Assigned Physician: Catalina Salazar Reviewed and Electronically Signed By: Catalina Salazar Signed Date: 08/25/2025 22:18 ET Workstation ID: [id number] Transcribed By: Self Edit Transcribed Date: 08/25/2025 22:16 ET Carlos FRAZIER IMG XR PROCEDURES Final Result documented in this encounter Visit Diagnoses Diagnosis Right knee pain, unspecified chronicity documented in this encounter Additional Health Concerns Assessment Noted Time PHQ-9 Depression Total Score: 1 12/31/19 25 8:50 PM EDT documented as of this encounter Care Teams Engineering Lab Technician Relationship Specialty Start Date End Date Paige Delgado DO [address] [place] [address] PCP - General Internal Medicine 12/07/24 documented as of this encounter
--- OUTSIDE RECORDS SUMMARY | 2025-08-26 10:30 | XMS_ITS | Encounter Summary ---
Author Organization [facility] Address [address] [place] [address] Care Team Providers Care Router Operator Name Role Phone Paige Delgado Primary Care Provider [phone] Reason for Visit * Consultation (Routine) - Pending Review Specialty Diagnoses / Procedures Referred By Reza garcia Referred To Contact Physical Therapy Diagnoses Neck pain Chronic bilateral low back pain without sciatica Carlos Patino PA [address] [place] [address] Phone: tel: fax: Referral ID Status Reason Start Date Expiration Date Visits Requested Visits Authorized [id number] Pending Review Specialty Services Required 04/08/2025 04/08/2026 20 20 Encounter Details Date Type Department Care Team ([facility] Contact Info) Description 08/26/2025 10:30 AM EST Treatment Outpatient Rehabilitation [address] [phone] Harlan Mendez, PT [address] [place] [address] Chronic bilateral low back pain without sciatica (Primary Dx); Neck pain Social History Tobacco Use Types Packs/Day Years [...] care for your loved ones. For example, early childhood education coordinator or elderly care for an older [...] PM EDT documented as of this encounter Progress Notes * Harlan Mendez, PT - 08/26/2025 10:30 AM EST [facility] - Outpatient PHYSICAL THERAPY Progress Report Date: 08/26/2025 Visit Number: [id number] Patient Name: Luz Maria Rocha : 2000 Age: 25 y.o. Gender: female Diagnosis: ICD-10-CM ICD-9-CM 1. Chronic bilateral low back pain without sciatica M54.50 724.2 G89.29 338.29 2. Neck pain M54.2 723.1 Date of Onset/Surgery: 12/24/2024 Hx of current complaints as per evaluation: Pt comes in with C/O neck and back pain. Pt reports onset after getting struck by a shopping cart at a [employer] aproxApril or . . Pt went to urgent care and said it was bruise and would likely be fine, and ifnot reach out. Pt did not improve therefore referred to a facility (unsure if chiropractor or PT) x4 wks without improvement. Pt now referred to our facility. 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 Pt's f/u with Mr. Aj is in January of 2026 Referring Provider: Carlos Patino PA Insurance: Payor: GENERIC / Plan: GENERIC / Product Type: Indemnity / Patient identified by: Harlan Mendez PT Language: Speaks and understands Nicaraguan as preferred language with no oil well gun perforator operator required Chart Reviewed: Yes Medications: Medications Ordered Prior to Encounter[1] Precautions: NA SUBJECTIVE History of Present Illness/Subjective Report: Reports back pain still present, but neck and mid back are fine. Pt does reports experiencing intermittent JAMES, usually every other day. Is the patient at Risk for Falls: No Pain: 2-5/10 OBJECTIVE *= Pain C ROM WNL Lumbar flexion (0-90) 78 Lumbar extension (0-35) 30 Lumbar side bending R (0-25) 30 Lumbar side bending L (0-25) 30 DTR's: +2 throughout Sensation: intact to light touch LE MMT Right Left Ankle PF (S 1)---SLHR reps 15 15 Ankle DF (L 4-L 5) 5/5 5/5 Knee extension (L 3) 5/5 5/5 Knee flexion (S 2) 5/5 5/5 Hip ER 5/5 5/5 Hip IR 4-/5 4-/5 Hip flexion (L 1-2) 4-/5 4-/5 Hip abduction 4-/5 4-/5 Hip adduction 4-/5 4-/5 Hip extension 3+/5 3+/5 Ability to standard bridge 100% Ability to unilateral bridge 100%* 100%* UE MMT Right Left Shoulder flexion 4+/5 4+/5 Shoulder extension 5/5 5/5 Shoulder ABD (C 5) 5/5 5/5 Shoulder ADD 5/5 5/5 Shoulder ER 4/5 4/5 Shoulder IR 5/5 5/5 Elbow Flexion (C 6) 5/5 5/5 Elbow Extension (C 7) 5/5 5/5 Forearm Supination 5/5 5/5 Forearm Pronation 5/5 5/5 Wrist Flexion (C 8) 5/5 5/5 Wrist Extension 5/5 5/5 Rouge Presser 5/5 5/ Lower trap 3+/5 3+/5 Mid trap 4-/5 4-/5 Rhomboids 4-/5 4-/5 Deep neck flexor strength: 15 sec Tight: UT, levator scap, pec minor, hip flexors, HS Palpation: TTP over B first ribs, TTP over CT junction, TTP proximal 1/2 T spine with spring testing, TTP over L spine with spring testing. TTP over B SIJ marked hypomobility mid T spine Special Tests: Positive: L quadrant B Negative: SLR, SHAYNA, FADDIR, hip scouring TREATMENT INTERVENTION Progress note components NuStep x 5 min L 5 Prone PA/UPA distal L spine Grade 5 min T spine in prone UPA mid T spine Pt education: yes ASSESSMENT/Response to Treatment: Luz Maria Rocha is a 25 y.o. female was making very good progress, but had set back as noted above, which affects today's measurable's. 6 additional PT recommended, focusing on more lumbar stab, with the addition of trial ing dry needling. This was discussed with pt and pt in agreement. Rehabilitation Potential: Rehab Potential: Good Patient Education: [x] Discussed, with patient and/or caregiver, the recommended plan of care/goals, the importance oftherapy and appointment compliance in order to achieve goals in a timely manner. 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 Plan discussed with pt and pt in agreement. BILLING TOTAL TREATMENT TIME: 31 Minutes Documentation completed by Harlan Mendez, PT [facility] [address] [address] Dept: [phone] Dept PATIENT NAME: Luz Maria Rocha : 2000 Certification: This is to certify that the above named patient, who is under my care, requires skilled Therapy services as described in the above treatment plan. I further certify that the services outlined in this plan are skilled and medically necessary. I have reviewed this plan for rehabilitation services, and I recommend that these services continue to meet the above stated goals and plan. SIGNATURE: DATE Carlos Patino PA Referring provider [1] Current Outpatient Medications on File Prior to Visit Medication Sig Dispense Refill ibuprofen (ADVIL,MOTRIN) 800 mg tablet Take 1 tablet (800 mg total) by mouth 3 (three) times a day if needed for mild pain (pain). 60 tablet 0 ondansetron (ZOFRAN) 8 mg tablet TAKE 1 TABLET BY MOUTH EVERY 8 HOURS IF NEEDED FOR NAUSEA OR VOMITING FOR UP TO 7 DAYS. 20 tablet 1 valACYclovir (VALTREX) 500 mg tablet TAKE 1 TABLET BY MOUTH EVERY DAY 90 tablet 3 [DISCONTINUED] ciprofloxacin (CIPRO) 500 mg tablet Take 1 tablet (500 mg total) by mouth 2 (two) times a day. [DISCONTINUED] ondansetron (ZOFRAN) 8 mg tablet Take 1 tablet (8 mg total) by mouth every 8 (eight)hours if needed for nausea or vomiting for up to 7 days. 20 tablet 1 [DISCONTINUED] tiZANidine (ZANAFLEX) 2 mg tablet Take 1 tablet (2 mg total) by mouth 3 (three) times a day if needed for muscle spasms. 30 tablet 1 No current facility-administered medications on file prior to visit. documented in this encounter Plan of Treatment Upcoming Encounters Date Type Department Care Team (Late st Contact Info) Description 09/02/2025 10:45 AM EST Treatment Outpatient Rehabilitation - [address] [phone] Harlan Mendez, PT [address] [place] [address] 09/06/2025 12:00 PM EST Treatment Outpatient [address] [phone] Harlan Mendez, PT [address] [place] [address] 09/13/2025 11:00 AM EST Treatment Outpatient [address] [phone] Harlan Mendez, PT [address] [place] [address] 09/20/2025 12:00 PM EST Treatment Outpatient [facility] - [address] [phone] Harlan Mendez, PT [address] [place] [address] 01/02/2026 2:00 PM EDT Office Visit Obstetrics & Gynecology - [address] [phone] Yamini Mendez, NATI [address] [place] [address] 02/08/2026 9:00 AM EDT [facility] [address] [place], [place] [phone] Carlos Patino PA [address] [place], [place] documented as of this encounter Goals Goal Patient Goal Type Associated Problems Recent Progress Patient-Stated? 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
--- NOTE | ~2025-08-31 | XR_ITS ---
EXAMINATION: XR CHEST CLINICAL INFORMATION: E66.01 - Morbid (severe) obesity due to excess calories COMPARISON: X-ray 04/17/2021 TECHNIQUE: 2 views of the chest were obtained. FINDINGS: The cardiomediastinal silhouette is within normal limits.. There is no focal consolidation, edema, or effusion. No pneumothorax. No acute osseous abnormality. XR/XR chest 2V IMPRESSION: No acute cardiopulmonary findings Electronically signed by: Bryce Kelly MD 08/31/2025 03:43 PM MANAV
--- NOTE | 2025-08-31 11:09 | ECG_ITS ---
Test Reason : E66.01 Blood Pressure : */* mmHG Vent. Rate : 63 BPM Atrial Rate : 63 BPM P-R Int : 144 ms QRS Dur : 88 ms QT Int : 414 ms P-R-T Axes : 26 17 6 degrees QTcB Int : 423 ms Normal sinus rhythm with sinus arrhythmia Possible Inferior infarct , age undetermined Abnormal ECG When compared with ECG of 17-Apr-2021 10:17, No significant change was found Referred By: Miller Polk Electronically Signed By: Michael Morris
[2025-08-31 11:27] LABS: MANUAL DIFF FLAG NO
[2025-08-31 12:32] LABS: Hematocrit 40.3 % (37.0-47.0); Hemoglobin 12.7 g/dl (12.0-16.0); Imm Gran Abs Auto 0.03 X10*3/uL (0.00-0.03); Imm Gran Pct Auto 0.5 % (0.0-0.4); Lymphocytes Absolute Auto 1.8 X10*3/uL (1.2-4.9); Mean Corpuscular HGB Conc 31.5 g/dl (31.0-35.0); Mean Corpuscular Hemoglobin 26.2 pg (27.0-33.0); Mean Corpuscular Volume 83.1 fL (80.0-98.0); NRBC Abs Auto 0.000 X10*3/uL (0.0-0.012); NRBC Pct Auto 0.0 /100WBC (0.0-0.2); Platelet Count 263 X10*3/uL (160-400); Red Blood Count 4.85 X10*6/uL (4.20-5.50); White Blood Count 5.5 X10*3/uL (4.8-10.8)
[2025-08-31 12:45] LABS: Alanine Aminotransferase 29 U/L (0-31); Albumin Level 4.7 g/dL (3.5-5.0); Alkaline Phosphatase 102 U/L (39-117); Anion Gap 17 (12-20); Aspartate Amino Transferase 56 U/L (5-31); Blood Urea Nitrogen 11 mg/dL (9-16); Calcium 9.4 mg/dL (8.4-10.2); Carbon Dioxide 22 mmol/L (22-29); Chloride 104 mmol/L (96-108); Cholesterol 135 mg/dL (<200); Estimated Glomerular Filt Rate > 60; HDL Cholesterol 34 mg/dL (>40); Iron 91 mcg/dL (30-160); Percent Iron Saturation 28 % (15-50); Potassium 5.0 mmol/L (3.3-5.1); Sodium 138 mmol/L (135-145); Total Iron Binding Capacity 320 mcg/dL (228-428); Total Protein 8.4 g/dL (6.5-8.0); Triglycerides 112 mg/dL (<150); Unsaturated Iron Binding 229 ug/dL
[2025-08-31 13:01] LABS: Ferritin 31 ng/mL (10-122)
[2025-08-31 13:12] LABS: Folate 10.5 ng/mL (> or = 4.0); Vitamin B12 719 pg/mL (200-900)
--- OUTSIDE RECORDS SUMMARY | 2025-08-31 14:32 | XMS_ITS | Encounter Summary ---
Author Organization [facility] Address [address] [place] [address] Care Team Providers Care Fishing Guide Name Role Phone Anny Delgadomana Primary Care Provider [phone] Reason for Referral * Consultation (Routine) - Closed Specialty Diagnoses / Procedures Referred By Reza garcia Referred To Contact Physical Therapy Diagnoses Right knee pain, unspecified chronicity Carlos Ptaino PA [address] [place] [address] Phone: tel: fax: [facility] [address] [address] Phone: tel: fax: Referral ID Status Reason Start Date Expiration Date V isits Requested Visits Authorized [id number] Closed Specialty Services Required 08/26/2025 08/26/2026 1 1 Encounter Details Date Type Department Care Team ([facility] st Contact Info) Description 08/26/2025 [facility] [address] [place] [address] Carlos Patino PA [address] [place] [address] Social History Tobacco Use Types Packs/Day Years [...] for your loved ones. For example, child development instructor or elderly care for an older adult? [...] PM EDT documented as of this encounter Plan of Treatment Upcoming Encounters Date Type Department Care Team (Late st Contact Info) Description 09/02/2025 10:45 AM EST Treatment Outpatient Rehabilitation [address] [phone] Harlan Mendez, PT [address] [place] [address] 09/06/2025 12:00 PM EST Treatment Outpatient [address] [phone] Harlan Mendez, PT [address] [place] [address] 09/13/2025 11:00 AM EST Treatment Outpatient [address] [phone] Harlan Mendez, PT [address] [place] [address] 09/20/2025 12:00 PM EST Treatment Outpatient [address] [phone] Harlan Mendez, PT [address] [place] [address] 01/02/2026 2:00 PM EDT Office Visit Obstetrics & Gynecology - [address] [phone] Yamini Mendez, MITALIM [address] [place] [address] 02/08/2026 9:00 AM EDT [facility] [address] [place] [address] Carlos Patino PA [address] [place] [address] Scheduled Referrals Name Type Priority Associated Diagnoses Order Schedule Ambulatory referral to Physical Therapy and Athletic Training Outpatient Referral Routine Right knee pain, unspecified chronicity 1 Occurrences starting 08/26/2025 until 08/26/2026 documented as of this encounter Goals Goal Patient Goal Type Associated Problems Recent Progress Patient-Stated? Author feel better General Improving( 7:26 PM EDT) Yes Harlan Mendez, PT PT STG x 8 visits from [facility] 05/23/25 General No Harlan Mendez, PT Note: [x] = [...] cleaning PT LTG x 22 visits from [facility] 05/23/2025 (updated 08/26/25) General Improving( 7:26 PM EDT) Harlan Zamora, PT Note: [x] = goal MET [] [...] [] Pt will be able to ready DEPUTY K 9 client without requiring sitting or rest documented as of this encounter Visit Diagnoses Diagnosis Right knee pain, unspecified chronicity- Primary documented in this encounter Additional Health Concerns Assessment Noted Time PHQ-9 Depression Total Score: 1 12/31/19 25 8:50 PM EDT documented as of this encounter Care Teams Fishing Guide Relationship Specialty Start Date End Date Paige Delgado DO [address] [place] [address] PCP - General Internal Medicine 12/07/24 documented as of this encounter
--- OUTSIDE RECORDS SUMMARY | 2025-08-31 14:32 | XMS_ITS | Clinical Summary ---
Author Organization [address] Address [address] [place] [phone] Phone Care Team Providers Care Hearing Aid Dispenser Name Role Phone Paige Delgado DO Primary Care Provider [phone] Allergies No known active allergies Medications valACYclovir (VALTREX) 500 mg tablet TAKE 1 TABLET BY MOUTH EVERY DAY 90 tablet 3 5 Active ondansetron (ZOFRAN) 8 mg tablet TAKE 1 TABLET BY MOUTH EVERY 8 HOURS IF NEEDED FOR NAUSEA OR VOMITING FOR UP TO 7 DAYS. 20 tablet 1 5 Active ibuprofen (ADVIL,MOTRIN) 800 mg tablet Take 1 tablet (800 mg total) by mouth 3 (three) times a day if needed for mild pain (pain). 60 tablet 5 026 Active ondansetron (ZOFRAN) 8 mg tablet Take 1 tablet (8 mg total) by mouth every 8 (eight) hours if needed for nausea or vomiting for up to 7 days. 20 tablet 1 5 025 Discontinued tiZANidine (ZANAFLEX) 2 mg tablet Take 1 tablet (2 mg total) by mouth 3 (three) times a day if needed for muscle spasms. 30 tablet 1 5 025 Discontinued ciprofloxacin (CIPRO) 500 mg tablet Take 1 tablet (500 mg total) by mouth 2 (two) times a day. 025 Discontinued Active Problems Problem Noted Date Diagnosed Date Prediabetes 06/06/2025 Chlamydia infection 06/15/2024 Encounters Date Type Department Care Team Description 08/26/2025 10:30 AM EST Treatment Outpatient [address] [phone] Andrea Desmond, PT Chronic bilateral low back pain without sciatica (Primary Dx); Neck pain 08/26/2025 Results Follow-Up Internal Medicine - [address] [phone] Carlos Patino PA 08/25/2025 10:40 AM EST - 08/25/2025 11:59 PM EST Hospital Encounter Xray - [address] [phone] Right knee pain, unspecified chronicity Discharge Disposition: Home or Self Care 08/25/2025 10:15 AM EST Office Visit Internal Medicine - [address] [phone] Carlos Patino PA Attention deficit hyperactivity disorder (ADHD), unspecified ADHD type (Primary Dx); Right knee pain, unspecified chronicity 08/23/2025 10:30 AM EST Treatment Outpatient [address] [phone] Andrea Desmond, PT Chronic bilateral low back pain without sciatica (Primary Dx); Neck pain 08/19/2025 10:30 AM EST Treatment Outpatient [address] [phone] Andrea Desmond, PT Chronic bilateral low back pain without sciatica (Primary Dx); Neck pain 08/09/2025 10:30 AM EST Treatment Outpatient [address] [phone] Andrea Desmond, PT Chronic bilateral low back pain without sciatica (Primary Dx); Neck pain 07/29/2025 10:30 AM EST Treatment [facility] [address] [place] [phone] Lizeth Benson, RECREATION CENTER DIRECTOR Chronic bilateral low back pain without sciatica (Primary Dx); Neck pain 07/13/2025 6:00 PM EDT Treatment [address] [phone] Harlan Mendez, PT Chronic bilateral low back pain without sciatica (Primary Dx); Neck pain 07/07/2025 5:30 PM EDT Treatment [address] [phone] Flaquito Medrano, RECREATION CENTER DIRECTOR Chronic bilateral low back pain without sciatica (Primary Dx); Neck pain 06/30/2025 5:30 PM EDT Treatment [address] [phone] Flaquito Medrano, RECREATION CENTER DIRECTOR Neck pain (Primary Dx) 06/27/2025 5:30 PM EDT Treatment [address] [phone] Flaquito Medrano, RECREATION CENTER DIRECTOR Chronic bilateral low back pain without sciatica (Primary Dx); Neck pain 06/23/2025 5:30 PM EDT Treatment [facility] [address] [phone] Flaquito Medrano, RECREATION CENTER DIRECTOR Chronic bilateral low back pain without sciatica (Primary Dx) 06/20/2025 5:30 PM EDT Treatment [address] [phone] Flaquito Medrano, RECREATION CENTER DIRECTOR Chronic bilateral low back pain without sciatica (Primary Dx) 06/16/2025 6:00 PM EDT Treatment [address] [phone] Flaquito Medrano, RECREATION CENTER DIRECTOR Chronic bilateral low back pain without sciatica (Primary Dx); Neck pain 06/14/2025 5:30 PM EDT Treatment [address] [phone] Flaquito Medrano, RECREATION CENTER DIRECTOR Neck pain (Primary Dx); Chronic bilateral low back pain without sciatica 06/09/2025 5:30 PM EDT Treatment [address] [phone] Flaquito Medrano, RECREATION CENTER DIRECTOR Neck pain (Primary Dx); Chronic bilateral low back pain without sciatica 06/07/2025 5:30 PM EDT Treatment [address] [phone] Flaquito Medrano, RECREATION CENTER DIRECTOR Neck pain (Primary Dx); Chronic bilateral low back pain without sciatica 06/02/2025 1:00 PM EDT Office Visit Internal [facility] - [facility] [address] [place] [address] Carlos Patino PA Acute cystitis without hematuria (Primary Dx); Dysuria from Last 3 Months Medical History Medical [...] for your loved ones. For example, child protective services social worker or elderly care for an older adult? [...] Orientation Straight 12/30/2024 8: 45 PM EDT Last Filed Vital Signs Vital Sign Reading Time Taken Comments Blood Pressure 108/74 08/25/2025 10:22 AM EST Pulse 62 08/25/2025 10:22 AM EST Temperature 36.4 C (97.6 F) 07/21/2024 8:36 AM EST Respiratory Rate 16 08/25/2025 10:22 AM EST Oxygen Saturation 100% 07/21/2024 8:36 AM EST Inhaled Oxygen Concentration - - Weight 121 kg (266 lb) 08/25/2025 10:22 AM EST Height 152.4 cm (5') 07/21/2024 8:36 AM EST Body Mass Index 51.95 07/21/2024 8:36 AM EST Plan of Treatment Upcoming Encounters Date Type Department Care Team (Late st Contact Info) Description 09/02/2025 10:45 AM EST Treatment Outpatient [address] [phone] Harlan Mendez, PT [address] [place] [address] 09/06/2025 12:00 PM EST Treatment Outpatient [address] [phone] Harlan Mendez, PT [address] [place] [address] 09/13/2025 11:00 AM EST Treatment Outpatient [address] [phone] Harlan Mendez, PT 175 [place] [address] 09/20/2025 12:00 PM EST Treatment Outpatient [address] [phone] Harlan Mendez, PT [address] [place] [address] 01/02/2026 2:00 PM EDT Office Visit Obstetrics & Gynecology - [facility] [address] [place] [address] Yamini Mendez, NATI [address] [place] [address] 02/08/2026 9:00 AM EDT Office Visit Internal Medicine - [facility] [address] [place] [address] Carlos Patino PA [address] [place] [address] Health Maintenance Due Date Last Done Comments [...] (2 - Td or Tdap) 07/08/2034 07/08/2024 RSV Immunization Adult Patients (1 - 1-dose 75+ series) 2075 Meningococcal ACWY Vaccine Completed 12/18/2016 HIV Screening [...] PT PT STG x 8 visits from [facility] 05/23/25 General No Harlan Mendez, PT Note: [...] cleaning PT LTG x 22 visits from [facility] 05/23/2025 (updated 08/26/25) General Improving( 7:26 [...] [] Pt will be able to ready PECAN CLEANER client without requiring sitting or rest Procedures Procedure Name Priority Date/Time Associated Diagnosis Comments XR KNEE 4+ VIEWS RIGHT Routine 10:43 AM EST Right knee pain, unspecified chronicity CBC WITH AUTO DIFFERENTIAL Routine 06/02/2025 3:57 PM EDT Health maintenance examination GUERIN URINE CULTURE TUBE Routine 06/02/2025 3:57 PM EDT Dysuria CBC AND DIFFERENTIAL Routine 06/02/2025 3:57 PM EDT Health maintenance examination HEMOGLOBIN A1C Routine 06/02/2025 3:57 PM EDT Health maintenance examination URINALYSIS WITH REFLEX MICROSCOPIC AND CULTURE Routine 06/02/2025 3:56 PM EDT Dysuria URINALYSIS WITH REFLEX MICROSCOPIC AND CULTURE Routine 06/02/2025 3:56 PM EDT Dysuria THYROID STIMULATING HORMONE WITH REFLEX TO FREE T4 AND FREE T3 Routine 06/02/2025 3:54 PM EDT Health maintenance examination COMPREHENSIVE METABOLIC PANEL Routine 06/02/2025 3:54 PM EDT Health maintenance examination HM GONORRHEA/CHLAMYDIA SCRREENING Routine 04/16/2024 HM HEPATITIS C SCREENING Routine 04/15/2024 HM HIV SCREENING Routine 04/15/2024 LIPID PANEL Routine 06/06/2023 PAP SMEAR Routine 03/13/2022 from Last 3 Months or Most Recently Relevant to Health Maintenance Results * XR Knee 4+ Views Right [...] Signed Date: 08/25/2025 22:18 ET Workstation ID: [id number] Transcribed By: Self Edit Transcribed Date: 08/25/2025 [...] Signed Date: 08/25/2025 22:18 ET Workstation ID: [id number] Transcribed By: Self Edit Transcribed Date: 08/25/2025 22:16 ET us Carlos FRAZIER IMG XR PROCEDURES Final Result * Guerin urine culture tube (06/02/2025 3:57 PM EDT) [facility] Extra Tube Hold for add-ons. 06/02/2025 9:01 PM EDT [facility] Comment:Auto resulted. Urine Urine specimen obtained by clean catch procedure / Unknown 06/02/2025 3:57 PM EDT 06/02/2025 3:57 PM EDT Carlos FRAZIER LAB URINE ORDERABLES Fi nal Result [facility] [address] [place] [address], [place] [phone] * (ABNORMAL) CBC auto differential (06/02/2025 3:57 PM EDT) [facility] WBC 7.7 4.8 - 10.8 K/mcL LAB HEMETOLOGY METHOD 06/03/2025 2:03 PM EDT [facility] RBC 4.40 3.80 - 4.80 M/mcL LAB HEMETOLOGY METHOD 06/03/2025 2:03 PM EDT [facility] Hemoglobin 11.8 11.5 - 16.0 g/dL LAB HEMETOLOGY METHOD 06/03/2025 2:03 PM EDT [facility] Hematocrit 38.5 35.0 - 47.0 % LAB HEMETOLOGY METHOD 06/03/2025 2:03 PM EDT [facility] MCV 87.3 79.0 - 98.0 FL LAB [facility]EMETOLOGY [facility] MCH 26.8(L) 27.0 - 32.0 pcg LAB HEMETOLOGY METHOD 06/03[facility]2025 [facility] MCHC 30.6(L) 32.0 - 37.0 g/dL LAB HEMETOLOGY METHOD 06/03/2025 2:03 PM [facility] RDW 13.9 11.0 - 15.0 % LAB HEMETOLOGY METHOD 06/03/2025 2:03 PM [facility] Platelets 291 130 - 400 K/mcL LAB HEMETOLOGY METHOD 06/03/2025 2:03 PM [facility] MPV 11.3(H) 7.0 - 11.0 FL LAB HEMETOLOGY METHOD 06/03/2025 2:03 PM [facility] NRBC 0.0 <1.0 % LAB HEMETOLOGY METHOD 06/03/2025 2:03 PM [facility] NRBC Absolute 0.00 <0.10 K/mcL LAB HEMETOLOGY METHOD 06/03/2025 2:03 PM [facility] Neutrophils Relative 60.7 % LAB HEMETOLOGY METHOD 06/03/2025 2:03 PM [facility] Lymphocytes Relative 28.8 % LAB HEMETOLOGY METHOD 06/03/2025 2:03 PM [facility] Monocytes Relative 8.1 % LAB HEMETOLOGY METHOD 06/03/2025 2:03 PM [facility] Eosinophils Relative 1.0 % LAB HEMETOLOGY METHOD 06/03/2025 2:03 PM [facility] Basophils Relative 0.9 % LAB HEMETOLOGY METHOD 06/03/2025 2:03 PM [facility] Immature Granulocytes Relative 0.5 % LAB HEMETOLOGY METHOD 06/03/2025 2:03 PM [facility] Neutrophils Absolute 4.65 1.50 - 7.00 K/mcL LAB HEMETOLOGY METHOD 06/03/2025 2:03 PM [facility] Lymphocytes Absolute 2.21 1.00 - 5.00 K/[facility] LAB HEMETOLOGY METHOD 06/03/2025 2:03 PM EDT [facility] Monocytes Absolute 0.62 0.20 - 1.00 K/[facility] LAB HEMETOLOGY METHOD 06/03/2025 2:03 PM EDT [facility] Eosinophils Absolute 0.08 0.00 - 0.50 K/[facility] LAB HEMETOLOGY METHOD 06/03/2025 2:03 PM EDT [facility] Basophils Absolute 0.07 0.00 - 0.20 K/[facility] LAB HEMETOLOGY METHOD 06/03/2025 2:03 PM EDT [facility] Immature Granulocytes Absolute 0.04(H) 0.00 - 0.03 K/[facility] LAB HEMETOLOGY METHOD 06/03/2025 2:03 PM EDT [facility] Blood Venous blood specimen / Unknown Venipuncture / Unknown 06/02/2025 3:57 PM EDT 06/02/2025 3:57 PM EDT Carlos FRAZIER LAB BLOOD ORDERABLES Fi nal Result [facility] [address] [place] [address], * Hemoglobin A1c (06/02/2025 3:57 PM EDT) Hemoglobin A1C 5.7 <6.5 % LAB CHEMISTRY METHOD 06/03/2025 2:08 PM EDT [facility] Mean Bld Glu Estim. 117 mg/dL LAB CHEMISTRY METHOD 06/03/2025 2:08 PM EDT [facility] Blood Venous blood specimen / Unknown Venipuncture / Unknown 06/02/2025 3:57 PM EDT 06/02/2025 3:57 PM EDT Carlos FRAZIER LAB BLOOD ORDERABLES Fi nal Result [facility] [address] [place] [address], * (ABNORMAL) Urinalysis with reflex microscopic and culture (06/02/2025 3:56 PM EDT) Specific [place] Urine 1.029 1.003 - 1.030 LAB URINALYSIS - AUTOMATED METHOD 06/02/2025 7:22 PM [facility] pH, Urine 5.5 5.0 - 8.0 pH LAB URINALYSIS - AUTOMATED METHOD 06/02/2025 7:22 PM [facility] Leukocytes, Urine Negative Negative LAB URINALYSIS - AUTOMATED METHOD 06/02/2025 7:22 PM [facility] Nitrite, Urine Negative Negative LAB URINALYSIS - AUTOMATED METHOD 06/02/2025 7:22 PM [facility] Protein, Urine Negative <=Trace mg/dL LAB URINALYSIS - AUTOMATED METHOD 06/02/2025 7:22 PM [facility] Glucose, Urine Negative Negative mg/dL LAB URINALYSIS - AUTOMATED METHOD 06/02/2025 7:22 PM [facility] Ketones, Urine Trace(A) Negative mg/dL LAB URINALYSIS - AUTOMATED METHOD 06/02/2025 7:22 PM [facility] Urobilinogen, Urine 0.2 0.2 - 1.0 mg/dL LAB URINALYSIS - AUTOMATED METHOD 06/02/2025 7:22 PM [facility] Bilirubin, Urine Negative Negative LAB URINALYSIS - AUTOMATED METHOD 06/02/2025 7:22 PM [facility] Blood, Urine Negative Negative LAB URINALYSIS - AUTOMATED METHOD 06/02/2025 7:22 PM [facility] Urine Urine specimen obtained by clean catch procedure / Unknown 06/02/2025 3:56 PM EDT 06/02/2025 3:56 PM EDT Carlos FRAZIER LAB URINE ORDERABLES Fi nal Result Performing Organization Address [facility]/ZIP Co de Phone Number [facility] [address] [place] [address], [place] [phone] * Thyroid stimulating hormone with reflex to free t4 and free t3 (06/02/2025 3:54 PM EDT) Pathologist [facility] TSH 1.04 0.40 - 4.00 mcIU/mL LAB CHEMISTRY METHOD 06/02/2025 8:21 PM EDT [facility] Blood Venous blood specimen / Unknown Venipuncture / Unknown 06/02/2025 3:54 PM EDT 06/02/2025 3:55 PM EDT Carlos FRAZIER LAB BLOOD ORDERABLES Fi nal Result Performing Organization Address [facility]/ZIP Co de Phone Number [facility] [address] [place] [address], [place] [phone] * Comprehensive metabolic panel (06/02/2025 3:54 PM EDT) [facility] Sodium 138 133 - 145 mmol/L LAB CHEMISTRY METHOD 06/02/2025 7:09 PM EDT [facility] Potassium 4.1 3.5 - 5.5 mmol/L LAB CHEMISTRY METHOD 06/02/2025 7:09 PM EDT [facility] Chloride 106 96 - 110 mmol/L LAB CHEMISTRY METHOD 06/02/2025 7:09 PM EDT [facility] CO2 27 21 - 32 mmol/L LAB CHEMISTRY METHOD 06/02/2025 7:09 PM EDT [facility] Anion Gap 5 3 - 11 LAB CHEMISTRY METHOD 06/02/2025 7:09 PM EDT [facility] Glucose 91 70 - 100 mg/dL LAB CHEMISTRY METHOD 06/02/2025 7:09 PM [facility] BUN 9 5 - 25 mg/dL LAB CHEMISTRY METHOD 06/02/2025 7:09 PM [facility] Creatinine 0.69 0.50 - 1.10 mg/dL LAB CHEMISTRY METHOD 06/02/2025 7:09 PM [facility] eGFR 124 >=60 mL/min/1. 73m2 LAB CHEMISTRY METHOD 06/02/2025 7:09 PM [facility] Comment:Calculation based on the Chronic Kidney Disease Epidemiology Collaboration (CKD-EPI) equation refit without adjustment for race. BUN/Creatinine Ratio 13.0 LAB CHEMISTRY METHOD 06/02/2025 7:09 PM [facility] Calcium 9.1 8.5 - 10.5 mg/dL LAB CHEMISTRY METHOD 06/02/2025 7:09 PM [facility] AST (SGOT) 29 10 - 42 unit/L LAB CHEMISTRY METHOD 06/02/2025 7:09 PM [facility] ALT (SGPT) 40 10 - 60 unit/L LAB CHEMISTRY METHOD 06/02/2025 7:09 PM [facility] Alkaline Phosphatase 109 42 - 121 unit/L LAB CHEMISTRY METHOD 06/02/2025 7:09 PM [facility] Total Protein 7.4 6.0 - 8.0 g/dL LAB CHEMISTRY METHOD 06/02/2025 7:09 PM [facility] Albumin 4.0 3.2 - 5.0 g/dL LAB CHEMISTRY METHOD 06/02/2025 7:09 PM [facility] Total Bilirubin 0.4 0.0 - 1.4 mg/dL LAB CHEMISTRY METHOD 06/02/2025 7:09 PM [facility] Blood Venous blood specimen / Unknown Venipuncture / Unknown 06/02/2025 3:54 PM EDT 06/02/2025 3:55 PM EDT Carlos FRAZIER LAB BLOOD ORDERABLES Fi nal Result [facility] ([facility]) [facility] [address] [place] [address], [place] [phone] * Gonorrhea/Chlamydia Screening (04/16/2024) Pathologist [facility] Gonorrhea/Chla mydia Screening abstracted Historical Provider HEALTH MAINTENANCE Final Result * HIV Screening (04/15/2024) Pathologist [facility] HIV Screening abstracted [facility] Provider HEALTH MAINTENANCE Final Result * Hepatitis C Screening (04/15/2024) Pathologist [facility] Hepatitis C Screening abstracted [facility] Provider HEALTH MAINTENANCE Final Result * (ABNORMAL) Lipid panel (06/06/2023) Pathologist [facility] LDL/HDL Ratio 4 0 - 4 Triglycerides 122 0 - 150 mg/dL Cholesterol 140 0 - 200 mg/dL HDL 38(A) >=40 mg/dL LDL Cholesterol 78 0 - 100 mg/dL Blood Venous blood specimen / Unknown Historical Provider LAB BLOOD ORDERABLES Analy l Result * Pap Smear (03/13/2022) Pathologist [facility] Pap smear negative, abstracted Historical Provider HEALTH MAINTENANCE Final Result from Last 3 Months or Most Recently Relevant to Health Maintenance Insurance [facility] GENERIC [address] [place] [address] Care Teams Hearing Aid Dispenser Relationship Specialty Start Date End Date Paige Delgado DO [facility] [place] [address] PCP - General Internal Medicine 12/07/24
== END 2025-08-31 11:00 | disposition home or self-care (01) ==
LOC: HO.XRAY 10:59
PROVIDERS: Visit Provider Surgery
DX: E66.01 Morbid (severe) obesity due to excess calories (principal)
CPT/HCPCS: 36415; 71046; 80053; 80061; 82306; 82607; 82728; 82746; 83036; 83525; 83540; 84425; 84443; 84590; 84630; 85025; 86140; 93005

== ENCOUNTER → 2025-08-31 11:09 | Outpatient (BNV) | payer OTHER, SELFPAY | PROVIDERS: Visit Provider Internal Medicine Cardiovascular Disease | DX: R94.31 Abnormal electrocardiogram [ECG] [EKG] (principal); E66.01 Morbid (severe) obesity due to excess calories; Z68.43 Body mass index [BMI] 50.0-59.9, adult | CPT/HCPCS: 93010 ==

== ENCOUNTER 2025-09-14 08:05 | Day surgery (SDC) | payer OTHER, SELFPAY ==
--- OUTSIDE RECORDS SUMMARY | 2025-09-02 10:45 | XMS_ITS | Encounter Summary ---
Author Organization [facility] Address [address] [place] [address] Care Team Providers Care Volleyball Coach Name Role Phone Paige Delgado Primary Care Provider [phone] Reason for Visit * Consultation (Routine) - Pending Review Specialty Diagnoses / Procedures Referred By Reza garcia Referred To Contact Physical Therapy Diagnoses Neck pain Chronic bilateral low back pain without sciatica Carlos Patino PA [address] [place] [address] Phone: tel: fax: Referral ID Status Reason Start Date Expiration Date Visits Requested Visits Authorized [id number] Pending Review Specialty Services Required 04/08/2025 04/08/2026 20 20 Encounter Details Date Type Department Care Team ([facility] Contact Info) Description 09/02/2025 10:45 AM EST Treatment Outpatient Rehabilitation [address] [phone] Harlan Mendez, PT [address] [place] [address] Chronic bilateral low back pain without sciatica [...] for your loved ones. For example, child neurologist or elderly care for an older adult? [...] Progress Notes * Harlan Mendez, PT - 09/02/2025 10:45 AM EST [facility] - Outpatient PHYSICAL THERAPY DAILY TREATMENT NOTE - OP Date: 09/02/2025 Visit Number: [id number] Patient Name: Luz Maria Rocha : 2000 Age: 25 y.o. Gender: female Diagnosis: ICD-10-CM ICD-9-CM 1. Chronic bilateral low back pain without sciatica M54.50 724.2 G89.29 338.29 2. Neck pain M54.2 723.1 Date of Onset/Surgery: Multiple active episodes found Referring Provider: Carlos Patino PA Insurance: Payor: GENERIC / Plan: GENERIC / Product Type: Indemnity / Patient Identified by: Harlan Mendez PT Language: Speaks and understands Turkmen as preferred language with no translator and interpreter required Medications: Medications Ordered Prior to Encounter[1] Allergies: has no known allergies. Precautions: Precautions: NA Fall risk: No SUBJECTIVE Subjective Report: Pt reports pain was markedly decreased from last visit till today. Chart Reviewed: Yes Pain Pain location(s) Back pain 6 out of 10 OBJECTIVE TREATMENT INTERVENTION: NuStep x 5 min L 5 Clamshells 2 x 10 green band 5 sec hold Bridging with band around knees 5 sec hold 2 x 10 Hook lying dying bugs Dry needling SI ligaments Pt educated provided on interventions and how they relate to current complaints ASSESSMENT/Response to Treatment Good No C/O increased pain PLAN No change in plan of care; Participants: Patient Total Treatment Time: 30 Documentation completed by Harlan Mendez PT [1] Current Outpatient Medications on File Prior [...] BY MOUTH EVERY DAY 90 tablet 3 No current facility-administered medications on file prior to visit. documented in this encounter Plan of Treatment Upcoming Encounters Date Type Department Care Team (Late st Contact Info) Description 09/06/2025 12:00 PM EST Treatment Outpatient Rehabilitation [address] [phone] Harlan Mendez, PT [address] [place] [address] 09/13/2025 11:00 AM EST Treatment Outpatient [address] [phone] Harlan Mendez, PT [address] [place] [address] 09/20/2025 12:00 PM EST Treatment Outpatient [address] [phone] Harlan Mendez, PT [address] [place] [address] 01/02/2026 2:00 PM EDT Office Visit Obstetrics & Gynecology - [facility] [address] [place] [phone] Yamini Mendez CNM [address] [place] [address] 02/08/2026 9:00 AM EDT Office Visit Internal Medicine - [address] [phone] Carlos Patino PA [address] [place] [phone] documented as of this encounter Goals Goal Patient Goal Type Associated Problems Recent Progress Patient-Stated? Author feel better General Improving( 7:26 PM EDT) Yes Harlan Mendez PT PT STG x [address] [facility] 05/23/25 General No Harlan Mendez, [...] cleaning PT LTG x [address] 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
--- OUTSIDE RECORDS SUMMARY | 2025-09-02 12:20 | XMS_ITS | Encounter Summary ---
Author Organization [facility] Address [address] [place] [address] Care Team Providers Care Stapling Machine Operator Name Role Phone Anny Delgadomana Primary Care Provider [phone] Reason for Referral * Consultation (Routine) - Closed Specialty Diagnoses / Procedures Referred By Reza garcia Referred To Contact Physical Therapy Diagnoses Right knee pain, unspecified chronicity Carlos Patino PA [address] [place] [address] Phone: tel: fax: [facility] [address] [address] Phone: tel: fax: Referral ID Status Reason Start Date Expiration Date V isits Requested Visits Authorized [id number] Closed Specialty Services Required 08/26/2025 08/26/2026 1 1 Encounter Details Date Type Department Care Team ([facility] st Contact Info) Description 08/26/2025 [facility] [address] [place] [address] Carlos Patino PA [address] [place] [address] Social History Tobacco Use Types Packs/Day Years [...] for your loved ones. For example, child day care center worker or elderly care for an older [...] 09/06/2025 12:00 PM EST Treatment Outpatient Rehabilitation [address] [phone] Harlan Mendez, PT [address] [place] [address] 09/13/2025 11:00 AM EST Treatment Outpatient Rehabilitation - [address] [phone] Harlan Mendez, PT [address] [place] [address] 09/20/2025 12:00 PM EST Treatment Outpatient [address] [phone] Harlan Mendez, PT [address] [place] [address] 01/02/2026 2:00 PM EDT Office Visit Obstetrics & Gynecology - [facility] [address] [place] [phone] Yamini Mendez, MITALI [address] [place] [address] 02/08/2026 9:00 AM EDT Office Visit Internal Medicine - [address], [place] [phone] Carlos Patino PA [address] [place] [address] Scheduled Referrals Name Type Priority Associated Diagnoses [...] PT PT STG x 8 visits from [facility] 05/23/25 General No Harlan Mendez, PT [...] cleaning PT LTG x 22 visits from [facility] 05/23/2025 (updated 08/26/25) General Improving( 7:26 [...] [] Pt will be able to 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
--- OUTSIDE RECORDS SUMMARY | 2025-09-02 12:20 | XMS_ITS | Clinical Summary ---
Author Organization [address] Address [address] [place] [phone] Phone Care Team Providers Care Multiple Sclerosis Nurse Name Role Phone Paige Delgado DO Primary Care Provider [phone] Allergies No known active allergies Medications valACYclovir [...] Encounters Date Type Department Care Team Description 09/02/2025 10:45 AM EST Treatment Outpatient [address] [phone] AndreaLisetteDesmond, PT Chronic bilateral low back pain without sciatica (Primary Dx); Neck pain 08/26/2025 10:30 AM EST Treatment Outpatient [address] [phone] AndreaLisetteDesmond, PT Chronic bilateral low back pain without sciatica (Primary Dx); Neck pain 08/26/2025 Results Follow-Up Internal Medicine - [address] [phone] Carlos Patino PA 08/25/2025 10:40 AM EST - 08/25/2025 11:59 PM EST Hospital Encounter Xray - [address] [phone] Right knee pain, unspecified chronicity Discharge Disposition: Home or Self Care 08/25/2025 10:15 AM EST Office Visit Internal Medicine - [address] [phone] Carlos Patino PA Attention deficit hyperactivity disorder (ADHD), unspecified ADHD type (Primary Dx); Right knee pain, unspecified chronicity 08/23/2025 10:30 AM EST Treatment Outpatient [address] [phone] AndreaLisetteDesmond, PT Chronic bilateral low back pain without sciatica (Primary Dx); Neck pain 08/19/2025 10:30 AM EST Treatment Outpatient [address] [phone] AndreaLisetteDesmond, PT Chronic bilateral low back pain without sciatica (Primary Dx); Neck pain 08/09/2025 10:30 AM EST Treatment [facility] [address] [place], [place] [phone] AndreaLisetteDesmond, PT Chronic bilateral low back pain without sciatica (Primary Dx); Neck pain 07/29/2025 10:30 AM EST Treatment [address] [phone] Lizeth Benson, FINANCIAL SPECIALIST Chronic bilateral low back pain without sciatica (Primary Dx); Neck pain 07/13/2025 6:00 PM EDT Treatment [address] [phone] AndreaHarlan M, PT Chronic bilateral low back pain without sciatica (Primary Dx); Neck pain 07/07/2025 5:30 PM EDT Treatment [address] [phone] Flaquito Medrano, FINANCIAL SPECIALIST Chronic bilateral low back pain without sciatica (Primary Dx); Neck pain 06/30/2025 5:30 PM EDT Treatment [facility] [address] [phone] Flaquito Medrano, FINANCIAL SPECIALIST Neck pain (Primary Dx) 06/27/2025 5:30 PM EDT Treatment [address] [phone] Flaquito Medrano, FINANCIAL SPECIALIST Chronic bilateral low back pain without sciatica (Primary Dx); Neck pain 06/23/2025 5:30 PM EDT Treatment [address] [phone] Flaquito Medrano, FINANCIAL SPECIALIST Chronic bilateral low back pain without sciatica (Primary Dx) 06/20/2025 5:30 PM EDT Treatment [address] [phone] Flaquito Medrano, FINANCIAL SPECIALIST Chronic bilateral low back pain without sciatica (Primary Dx) 06/16/2025 6:00 PM EDT Treatment [facility] [address] [phone] Flaquito Medrano, FINANCIAL SPECIALIST Chronic bilateral low back pain without sciatica (Primary Dx); Neck pain 06/14/2025 5:30 PM EDT Treatment [facility] [address] [phone] Flaquito Medrano, FINANCIAL SPECIALIST Neck pain (Primary Dx); Chronic bilateral low back pain without sciatica 06/09/2025 5:30 PM EDT Treatment [facility] [address] [phone] Flaquito Medrano, FINANCIAL SPECIALIST Neck pain (Primary Dx); Chronic bilateral low back pain without sciatica 06/07/2025 5:30 PM EDT Treatment [address] [phone] Flaquito Medrano, FINANCIAL SPECIALIST Neck pain (Primary Dx); Chronic bilateral low [...] your loved ones. For example, child care worker or elderly care for an older [...] 09/06/2025 12:00 PM EST Treatment Outpatient Rehabilitation [address] [phone] Harlan Mendez, PT [address] [place] [address] 09/13/2025 11:00 AM EST Treatment Outpatient [address] [phone] Harlan Mendez, PT [address] [place] [address] 09/20/2025 12:00 PM EST Treatment Outpatient Rehabilitation [address] [phone] Harlan Mendez, PT [address] [place] [address] 01/02/2026 2:00 PM EDT Office Visit Obstetrics & Gynecology - [address] [phone] Yamini Mendez, MITALIM [address] [place] [address] 02/08/2026 9:00 AM EDT Office Visit [facility] [address] [facility] [place] [place] [phone] Carlos Patino PA [address] [facility] [place] [address] Health Maintenance Due Date Last Done Comments [...] General Improving( 7:26 PM EDT) Yes Harlan Mednez PT PT STG x 8 visits from [facility] 05/23/25 General No Harlan Mendez [...] cleaning PT LTG x 22 visits from [facility] 05/23/2025 (updated 08/26/25) General Improving( [...] [] 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 Procedures Procedure Name Priority Date/Time Associated Diagnosis Comments XR KNEE 4+ VIEWS RIGHT Routine 08/25/2025 10:43 AM EST Right knee pain, unspecified chronicity GONORRHEA/CHLAMYDIA SCRREENING Routine 04/16/2024 HEPATITIS C SCREENING Routine 04/15/2024 HIV SCREENING Routine 04/15/2024 LIPID PANEL Routine 06/06/2023 PAP SMEAR Routine 03/13/2022 from Last 3 Months or Most Recently Relevant to Health Maintenance Results * XR Knee 4+ Views Right (08/25/2025 10:43 AM EST) Anatomical Region Laterality Modality Lower Extremities, Knee Right [facility] 08/25/2025 10:1 6 PM EST Impressions 08/25/2025 10:18 PM EST No acute fracture or dislocation of the right knee. -------- FINAL REPORT -------- Dictated By: Catalina Salazar Dictated Date: 08/25/2025 22:16 ET Assigned Physician: Catalina Salazar Reviewed and Electronically Signed By: Catalina Salazar Signed Date: 08/25/2025 22:18 ET Workstation ID: [id number] Transcribed By: Self Edit Transcribed Date: 08/25/2025 [...] Signed Date: 08/25/2025 22:18 ET Workstation ID: [id number] Transcribed By: Self Edit Transcribed Date: 08/25/2025 22:16 ET Result [facility] Carlos FRAZIER IMG XR PROCEDURES Final Result * Gonorrhea/Chlamydia Screening (04/16/2024) [facility] Gonorrhea/Chla mydia Screening abstracted Result [facility] HEALTH MAINTENANCE Final Result * HIV Screening (04/15/2024) [facility] HIV Screening abstracted Result [facility] HEALTH MAINTENANCE Final Result * Hepatitis C Screening (04/15/2024) [facility] Hepatitis C Screening abstracted Result [facility] HEALTH MAINTENANCE Final Result * (ABNORMAL) Lipid panel (06/06/2023) [facility] LDL/HDL Ratio 4 0 - 4 Triglycerides 122 0 - 150 mg/dL Cholesterol 140 0 - 200 mg/dL HDL 38(A) >=40 mg/dL LDL Cholesterol 78 0 - 100 mg/dL Blood Venous blood specimen / Unknown Result [facility] Provider LAB BLOOD ORDERABLES Analy l Result * Pap Smear (03/13/2022) [facility] Pap smear negative, abstracted Result [facility] HEALTH MAINTENANCE Final Result from Last 3 Months or Most Recently Relevant to Health Maintenance Insurance [facility] [employer] GENERIC [address] [place] [address] Care Teams Multiple Sclerosis Nurse Relationship Specialty Start Date End Date Paige Delgado DO [address] [place] [address] PCP - General Internal Medicine 12/07/24
--- NOTE | 2025-09-07 11:37 | P.CONAN_ITS ---
Documented by User: Britney Fernandez NP 09/07/25 11:38 HPI - Anesthesia Eval Consult details Narrative: 25yo F for Upper Endoscopy BMI 52.2 PMFSH Active Problems Active Problems: All Active Problems Vitamin B1 deficiency (Acute) Vitamin A deficiency (Acute) Abnormal EKG (Acute) PCOS (polycystic ovarian syndrome) (Acute) Anxiety (Acute) Depression (Acute) Back pain (Acute) Toenail bruise (Acute) Vaginal discharge (Acute) Cystitis (Acute) Vaginal itching (Acute) Acute thoracic back pain (Acute) Upper respiratory tract infection (Acute) Knee pain (Acute) GERD (gastroesophageal reflux disease) (Acute) Hyperinsulinemia (Acute) Adjustment disorder, unspecified (Acute) Vitamin D deficiency (Acute) Morbid obesity (Acute) Past Medical History Medical History Vitamin B1 deficiency Vitamin A deficiency Abnormal EKG PCOS (polycystic ovarian syndrome) Anxiety Depression Back pain Cystitis Knee pain GERD (gastroesophageal reflux disease) Hyperinsulinemia Family History Family History Mother Non Hodgkin's lymphoma Father Arthritis Sister Celiac disease Sister No problems noted. Brother Alopecia Sister No problems noted. Surgical History Surgical History No history of previous surgery Social History Social History Are you a primary manager medicare marketing to a significant other at home: No Do you presently have visiting nurse or other home services: No Alcohol intake: current Alcohol intake frequency: holidays/special occasions only Patient Tobacco Use Status: Never used Tobacco Substance Use Type: Marijuana Substance Use Frequency: Occasionally Have you been hit, kicked, punched, or otherwise hurt by someone within the past year? If so, by whom?: No Are you DNR?: No Advance Directives: No Advance Directives Information Provided: Yes FDLMP: varies Meds Allergies Allergy/AdvReac Type Severity Reaction Status Date / Time No Known Allergies Allergy Verified 09/14/25 08:21 Home Medications ?Medication ?Instructions ?Recorded ?Confirmed ?Last Taken ?Type valacyclovir 500 mg tablet 500 mg PO DAILY 12/23/24 Unknown History Exam Narrative Narrative: EKG 08/2025 Vent. Rate : 63 BPM Atrial Rate : 63 BPM P-R Int : 144 ms QRS Dur : 88 ms QT Int : 414 ms P-R-T Axes : 26 17 6 degrees QTcB Int : 423 ms Normal sinus rhythm with sinus arrhythmia Possible Inferior infarct , age undetermined Abnormal ECG When compared with ECG of 17-Apr-2021 10:17, No significant change was found Assessment and Plan Assessment Anesthesia Assessment: Chart Reviewed Documented by User: Kenzie Sutton MD 09/14/25 08:58 [facility] Past Medical History Medical History Vitamin B1 deficiency Vitamin A deficiency Abnormal EKG PCOS (polycystic ovarian syndrome) Anxiety Depression Back pain Cystitis Knee pain GERD (gastroesophageal reflux disease) Hyperinsulinemia Family History Family History Mother Non Hodgkin's lymphoma Father Arthritis Sister Celiac disease Sister No problems noted. Brother Alopecia Sister No problems noted. Surgical History Surgical History No history of previous surgery History of Problems with Anesthesia: No Social History Social History Are you a primary manager medicare marketing to a significant other at home: No Do you presently have visiting nurse or other home services: No Alcohol intake: current Alcohol intake frequency: holidays/special occasions only Patient Tobacco Use Status: Never used Tobacco Substance Use Type: Marijuana Substance Use Frequency: Occasionally Have you been hit, kicked, punched, or otherwise hurt by someone within the past year? If so, by whom?: No Are you DNR?: No Advance Directives: No Advance Directives Information Provided: Yes FDLMP: varies Meds Allergies Allergy/AdvReac Type Severity Reaction Status Date / Time No Known Allergies Allergy Verified 09/14/25 08:21 Home Medications ?Medication ?Instructions ?Recorded ?Confirmed ?Last Taken ?Type valacyclovir 500 mg tablet 500 mg PO DAILY 04/10/25 12 /29/25 Unknown History Exam Airway Mallampati Class: II TM Dist: >3cm Neck ROM: Full Loose/Missing/Broken Teeth: No Heart: RRR Lungs: CTA Assessment and Plan Assessment Anesthesia Assessment: Anesthesia Plan Discussed Final Anesthetic Review History of Problems with Anesthesia: No NPO: Yes ASA Class: III Final Preanesthetic Review: Meds/Allgs Chart Reviewed, Consent Obtained/Reviewed and Anes Risks/Benef Reviewed Patient Risk: Intermediate Procedure Risk: Intermediate Anesthetic Plan Anesthetic Plan: MAC: Disposition: Standard PACU
[2025-09-12 11:48] VITALS: BMI 52.1
[2025-09-14 08:19] VITALS: BMI 49.0
[2025-09-14] MEDS: Lactated Ringers 1,000 ML 80 ML IVCONT (08:22)
[2025-09-14 08:26] LABS: UPreg QC Valid YES
[2025-09-14 08:32] VITALS: BP 139/83; PULSE 87; RESP 18; TEMP 36.7; O2SAT 96
--- NOTE | 2025-09-14 08:37 | MHC.SHP ---
Pre-Procedural Eval Section A - 24 Hr Update-Section A only Date of Service: 09/14/25 The patient is an INPATIENT: No The patient has been examined within 24 hours of the surgical procedure. The History & Physical has been completed within 30 days and I have reviewed it.: Yes Section B - Complete if H&P > 30 days Chief Complaint: Obesity, unspecified Details of Present Illness: GERD Relevant Family History (Specify if Yes): No Relevant Social History: None Present Medications: None Medical History: No relevant PMH History of Previous Operations: No relevant previous surgery Allergies: Allergies Allergy/AdvReac Type Severity Reaction Status Date / Time No Known Allergies Allergy Verified 09/14/25 08:21 Review of Systems Sugical H&P ROS: Negative: Constitution, Cardiovascular, Respiratory, Neurological, Psychiatric, Hem-Onc, Allergic/Immunologic, Gastrointestinal, Genitourinary, Musculoskeletal, Integumentary, Endocrine and Eyes/Ears/Nose/Throat Exam Surgical H&P Exam: Normal: HEENT, Normal: Heart, Normal: Lungs, Normal: Extremities, Normal: Abdomen, Normal: Skin and Normal: Neurological Plan Diagnosis/Plan: Unchanged (EGD to assess etiology of GERD. Risks of bleeding and perforation were discussed with the patient and she is in agreement with the plan.) I have reviewed the history and physical and performed a pertinent physical examination on my patient. No changes have occurred unless specified. Time Spent With Patient Time: Total time managing care of this patient today ____ minutes.
--- NOTE | 2025-09-14 08:40 | P.BOP_ITS ---
Brief Operative Note Date of Service: 09/14/25 Pre-op diagnosis: GERD Post-op diagnosis: same Procedure: PROCEDURE DATE: 09/14/2025 PREOPERATIVE DIAGNOSIS: GERD POSTOPERATIVE DIAGNOSIS: ?Same as above. Small diaphragmatichernia PROCEDURE: Jyuxwoqo-dgwiov-oavjszdqfagm with biopsies Surgeon: ?Sergey Polk M.D.. Ph.D. Academic Advising Director: None ? Anesthesia: IV sedation Estimated blood loss: ?Minimal FINDINGS AND PROCEDURE: ? OPERATIVE INDICATIONS: ?The patient is a 25 year old female known to me who is interested in bariatric surgery. The patient has GERD. Based on this information I recommended an upper endoscopy to evaluate the patient's symptoms. Risks and complications of the surgery were discussed with the patient in advance particularly the possibility of perforation or bleeding that may require surgical intervention. The patient understood the risks and was in agreement with the plan. ? PROCEDURE: After informed consent was obtained by the patient, the patient was ?transferred to the Operating Room and was placed in the supine position.? After successful induction of IV sedation, a mouth block was inserted and the patient was placed in the left lateral decubitus position. An upper endoscopy was performed next, the oropharynx and esophagus appeared within the normal limits. There was a small reducible hiatal hernia. The z-line was smooth. Two biopsies were obtained from the distal esophagus 2-3 cm proximal to the GE junction and two additional biopsies from the GE junction. The stomach was entered and it appeared to be of normal size. There was no gastritis. There was no stricture or ulcer. A biopsy was obtained from the gastric fundus and the antrum. No significant bleeding was noted from any of the biopsy sites. Retroflexion of the scope confirmed the presence of a normal GE junction. The scope was then advanced into the duodenum al the way to the 4th portion, which appeared to be normal as well. At that point the duodenum ?and the stomach were decompressed and the scope was withdrawn from the patient's mouth. The patient extubated and was transferred in stable condition to the Recovery Room for further care. I was present and performed all steps of the procedure. There were no residents to assist with this case. Sergey Polk M.D., Ph.D. Surgeon: Miller Polk MD Anesthesia: MAC Was an Academic Advising Director used for this Procedure?: No Estimated blood loss (mL): 0 IV fluids (mL): 400 Urine output (mL): 0 (No Maria to record output) Pathology: other (1) antrum x1, 2) fundus x1, 3) GE junction x2, 4) distal esophagus x2) Condition: stable Disposition: PACU
[2025-09-14 09:06] VITALS: BP 124/62; PULSE 97; RESP 16; TEMP 37; O2SAT 99
[2025-09-14 09:21] VITALS: BP 113/62; PULSE 96; RESP 16; TEMP 36.5; O2SAT 96
--- NOTE | 2025-09-14 09:29 | PC.NURSE ---
Pt states that she bit the inside of her upper lip--right side. Area visualized, there is some swelling, no active bleeding.
== END 2025-09-14 10:08 | disposition home or self-care (01) ==
PROVIDERS: Nurse Practitioner; Visit Provider Surgery
PROC: 0DJ08ZZ Inspection of Upper Intestinal Tract, Via Natural or Artificial Opening Endoscopic (ICD-10-PCS; CPT 43235; principal; 2025-09-14 09:30)
DX: K21.9 Gastro-esophageal reflux disease without esophagitis (principal); E66.01 Morbid (severe) obesity due to excess calories; Z68.43 Body mass index [BMI] 50.0-59.9, adult; K44.9 Diaphragmatic hernia without obstruction or gangrene; I10 Essential (primary) hypertension; E16.1 Other hypoglycemia; E28.2 Polycystic ovarian syndrome; F32.A Depression, unspecified; F41.9 Anxiety disorder, unspecified; Z79.899 Other long term (current) drug therapy
CPT/HCPCS: 43239; 81025; 88305; 88313; 88342; J2250; J2704

== ENCOUNTER → 2025-09-14 08:05 | Outpatient (BNV) | payer OTHER, SELFPAY | PROVIDERS: Visit Provider Surgery | DX: K44.9 Diaphragmatic hernia without obstruction or gangrene (principal); E66.01 Morbid (severe) obesity due to excess calories; Z68.43 Body mass index [BMI] 50.0-59.9, adult | CPT/HCPCS: 43239 ==